=== PATIENT | female | born 1960 | race Caucasian/White ===

== ENCOUNTER 2020-03-06 12:56 | Outpatient (CLI) | payer BC, OTHER, SELFPAY ==
[2020-03-06 13:45] LABS: Basophils Percent Auto 0.4 % (0.2-1.2); Eosinophils Absolute Auto 0.2 K/mm3 (0-0.3); Eosinophils Percent Auto 2.6 % (0-4.4); Hematocrit 37.7 % (37.0-47.0); Hemoglobin 12.1 g/dL (12.0-15.0); Immature Granulocyte Absolute 0.04 K/mm3 (0.00-0.031); Immature Granulocyte Percent A 0.5 % (0-0.5); Lymphocytes Absolute Auto 0.33 K/mm3 (0.9-3.2); Mean Corpuscular HGB Conc 32.1 g/dl (32-36); Mean Corpuscular Hemoglobin 30.4 pg (26-34); Mean Corpuscular Volume 94.7 fl (80-100); Mean Platelet Volume 9.9 fl (7.4-10.4); Monocytes Absolute Auto 1.4 K/mm3 (0.1-0.6); Monocytes Percent Auto 16.9 % (2.6-8.5); Neutrophils Absolute Auto 6.2 K/mm3 (1.3-6.7); Neutrophils Percent Auto 75.6 % (45.5-73.1); Platelet Count Result 396 k/mm3 (150-375); Red Blood Count 3.98 M/mm3 (4.2-5.4); Red Cell Distribution Width 12.6 % (11.5-14.5); White Blood Count 8.2 K/mm3 (4.5-10.0)
[2020-03-06 14:01] LABS: Alanine Aminotransferase 69 U/L (4-35); Albumin Level 4.2 g/dL (3.5-5.1); Alkaline Phosphatase 233 U/L (38-126); Aspartate Amino Transferase 35 U/L (14-36); Bilirubin,Total 0.4 mg/dL (0.2-1.3); Blood Urea Nitrogen 21 mg/dL (7-17); Calcium 9.3 mg/dL (8.4-10.2); Carbon Dioxide 29 mmol/L (22-30); Chloride 105 mmol/L (98-107); Estimated Glomerular Filt Rate 57; Glucose 100 mg/dL (65-105); Potassium 4.8 mmol/L (3.4-5.0); Sodium 142 mmol/L (137-145)
[2020-03-06 14:06] LABS: Add Urine Microscopic? YES; Appearance Urine Turbid (Clear); Bacteria Urine 1+ /hpf; Bilirubin Urine Negative (Negative); Blood Urine Negative (Negative); Color Urine Yellow (Yellow); Glucose Urine UA Negative (Negative); Ketones Urine Negative (Negative); Leukocyte Esterase Ur 2+ LEU/UL (Negative); Mucus Urine Heavy /lpf; Nitrate Urine Negative (Negative); Protein Urine 2+ mg/dL (Negative); RBC Urine 21-50 /hpf (0-2); Specific Grav Ur 1.016 (1.001-1.035); Squamous Epithelial Cell Urine Many /hpf (Few); Transitional Epi Cells Urine Few /hpf (None Seen); WBC Clumps Urine Present /HPF; WBC Urine >75 /hpf
== END 2020-03-06 12:57 | disposition home or self-care (01) ==
PROVIDERS: PCP Internal Medicine Endocrinology, Diabetes & Metabolism
DX: G35 Multiple sclerosis (principal); Z79.899 Other long term (current) drug therapy
CPT/HCPCS: 36415; 80053; 81001; 85025; 87086

== ENCOUNTER 2020-06-07 12:15 | Outpatient (CLI) | payer BC, OTHER, SELFPAY ==
[2020-06-07 12:58] LABS: Calcium 9.3 mg/dL (8.4-10.2); Estimated Glomerular Filt Rate > 60
[2020-06-07 13:43] LABS: Vitamin D 25 Hydroxy 49.1 ng/mL
== END 2020-06-07 12:16 | disposition home or self-care (01) ==
PROVIDERS: PCP Internal Medicine Endocrinology, Diabetes & Metabolism; Visit Provider Nurse Practitioner
DX: M81.0 Age-related osteoporosis without current pathological fracture (principal); Z01.818 Encounter for other preprocedural examination
CPT/HCPCS: 36415; 82306; 82310; 82565

== ENCOUNTER → 2020-07-07 17:42 | Outpatient (CLI) | payer BC, OTHER, SELFPAY ==
--- NOTE | ~2020-07-07 | MM_ITS ---
EXAMINATION: MM screening [facility] BI w diana HISTORY: Screening mammogram TECHNIQUE: Craniocaudal and mediolateral oblique 3-D tomosynthesis images were obtained and synthetic 2-D images were generated. CAD analysis was submitted and interpreted. COMPARISON: 05/14/2019, 04/17/2018, 03/23/2017 bilateral digital screening mammogram examinations BREAST PARENCHYMAL COMPOSITION: The breasts are heterogeneously dense, which may obscure small masses . FINDINGS: Stable benign circumscribed approximately 5 mm opacity is noted in the posterior aspect of the upper mid right breast (MLO Tomosynthesis image 30/59), likely a benign intramammary lymph node. Several subcentimeter circumscribed masses are suggested in the upper inner and upper outer left jaqueline st; diagnostic left mammogram and left breast ultrasound examination are recommended for further eval uation. Otherwise no suspicious mass, architectural distortion, malignant calcification, skin thickening or r etraction of either breast is evident. IMPRESSION: 1. Several subcentimeter circumscribed masses are noted in the upper inner and upper outer left breas t 2. Diagnostic left mammogram and left breast ultrasound examination are recommended. BI-RADS Category 0: Incomplete: Needs additional imaging evaluation. Reviewed, dictated and finalized at location B. ARCH AND DEVELOPMENT TECHNICIAN IMPRESSION: 1. Several subcentimeter circumscribed masses are noted in the upper inner and upper outer left breast 2. Diagnostic left mammogram and left breast ultrasound examination are recomme nded. BI-RADS Category 0: Incomplete: Needs additional imaging evaluation.
== END ==
PROVIDERS: Visit Provider Nurse Practitioner
DX: Z12.31 Encounter for screening mammogram for malignant neoplasm of breast (principal); R92.8 Other abnormal and inconclusive findings on diagnostic imaging of breast
CPT/HCPCS: 77063; 77067

== ENCOUNTER → 2020-09-03 09:19 | Outpatient (CLI) | payer BC, OTHER, SELFPAY ==
--- NOTE | ~2020-09-03 | MMUS_ITS ---
EXAMINATION: MM diagnostic mammo unilat LT, US breast LT limited HISTORY: Follow-up left breast masses TECHNIQUE: Additional 3-D tomosynthesis images of the left breast were performed and synthetic 2-D im ages were generated. CAD analysis was submitted and interpreted. High resolution Limited left breast ultrasound was performed. COMPARISON: Comparison to multiple prior studies sequentially, with oldest reviewed study dated 02/11. BREAST PARENCHYMAL COMPOSITION: The breasts are heterogenously dense, which may obscure small masses. FINDINGS: MAMMOGRAPHIC FINDINGS: There are no suspicious masses, calcifications or architectural distortion to suggest malignancy. The re are benign intramammary lymph nodes in the upper aspect of the left breast on mediolateral view. ULTRASOUND: Limited left breast ultrasound: There is normal heterogeneous echotexture without focal solid or cyst ic mass. IMPRESSION: 1. No evidence for malignancy in the left breast. 2. Routine yearly screening mammogram and regular clinical breast examination are recommended. BI-RADS Category 1: Negative Reviewed, dictated and finalized at location A. NT PORTFOLIO MANAGER IMPRESSION: 1. No evidence for malignancy in the left breast. 2. Routine yearly screening mammogram and regular clinical breast examination a re recommended. BI-RADS Category 1: Negative
== END ==
PROVIDERS: Visit Provider Obstetrics & Gynecology Gynecology
DX: R92.8 Other abnormal and inconclusive findings on diagnostic imaging of breast (principal)
CPT/HCPCS: 76642; 77065

== ENCOUNTER → 2021-08-11 09:16 | Outpatient (CLI) | payer BC, OTHER, SELFPAY ==
--- NOTE | ~2021-08-11 | MMUS_ITS ---
EXAMINATION: MM diagnostic crystal BI w diana, US breast BI limited HISTORY: Pain in the bilateral upper breasts. TECHNIQUE: Craniocaudal, mediolateral, and mediolateral oblique 3-D tomosynthesis images of the abi ts were performed and synthetic 2-D images were generated. CAD analysis was submitted and interpreted . High resolution limited bilateral breast ultrasound was performed. COMPARISON: 09/03/2020, 07/07/2020, 05/14/2019, 04/17/2018 BREAST PARENCHYMAL COMPOSITION: The breasts are heterogeneously dense, which may obscure small masses . FINDINGS: MAMMOGRAPHIC FINDINGS: There is no evidence of suspicious mass, calcification, or architectural distortion in either breast to suggest malignancy. There has been no suspicious interval change. No mammographic correlate is id entified for the patient's reported breast pain ULTRASOUND: There is no evidence of focal abnormal solid or cystic mass in the vicinity of the patient's reported pain in either breast. There is a 3 mm cyst near the areola of the left breast. IMPRESSION: 1. No specific mammographic or sonographic correlate is identified for the patient's reported breast pain. Further evaluation at this time should be based on clinical assessment. Continued follow-up phy sical examination is recommended. 2. Recommend routine screening mammography in one year. BI-RADS Category 2: Benign finding(s). Reviewed, dictated and finalized at location A. ATAL CRITICAL CARE NURSE IMPRESSION: 1. No specific mammographic or sonographic correlate is identified for the shaquille ent's reported breast pain. Further evaluation at this time should be based on clinical assessment. Continued follow-up physical examination is recommended. 2. Recommend routine screening mammography in one year. BI-RADS Category 2: Benign finding(s).
== END ==
PROVIDERS: Visit Provider Nurse Practitioner
DX: N64.4 Mastodynia (principal)
CPT/HCPCS: 76642; 77062; 77066; G0279

== ENCOUNTER → 2022-02-14 13:28 | Outpatient (CLI) | payer BC, OTHER, SELFPAY ==
--- NOTE | ~2022-02-14 | DEXA_ITS ---
Bone Density Report Name: INES RODRIGEZ Age: 61 Sex: Female Ethnicity: White Date of : 1960 Indication: postmenopausal osteoporosis; parental hip fracture; Referring Provider: ONIEL, ESTEFANÍA Study: Bone densitometry was performed. Exam Date: February 14, 2022 Accession number: [id number] Bone Density: Region BMD T-score Z-score Classification AP Spine (L1-L4) 0.766 -2.6 -1.2 Osteoporosis Femoral Neck (Left) 0.591 -2.3 -1.1 Osteopenia Total Hip (Left) 0.627 -2.6 -1.7 Osteoporosis Femoral Neck (Right) 0.538 -2.8 -1.5 Osteoporosis Total Hip (Right) 0.666 -2.3 -1.3 Osteopenia Total Hip Mean 0.647 -2.5 -1.5 Osteopenia World Health Organization criteria for BMD impression classify patients as: Normal (T-score at or above -1.0), Osteopenia (T-score between -1.0 and -2.5), or Osteoporosis (T-score at or below -2.5). 10-year Fracture Risk: FRAX not reported because: Some T-score for Spine Total or Hip Total or Femoral Neck at or below -2.5 Previous Exams: Region Exam Age BMD T-score BMD Change BMD Change Date g/cm2 vs Baseline vs Previous AP Spine(L1-L4) 02/14/2022 61 0.766 -2.6 0.032* 0.007 05/14/2019 58 0.759 -2.6 0.025* -0.008 03/23/2017 56 0.767 -2.5 0.033* 0.049* 01/04/2015 54 0.718 -3.0 -0.016 0.004 12/30/2012 52 0.714 -3.0 -0.020 -0.020 08/17/2010 50 0.734 -2.8 Total Hip(Left) 02/14/2022 61 0.627 -2.6 0.035* 0.006 05/14/2019 58 0.620 -2.6 0.029* 0.007 03/23/2017 56 0.614 -2.7 0.022 0.015 01/04/2015 54 0.599 -2.8 0.007 0.017 12/30/2012 52 0.582 -3.0 -0.010 -0.010 08/17/2010 50 0.592 -2.9 Total Hip(Right) 02/14/2022 61 0.666 -2.3 0.025 -0.001 05/14/2019 58 0.667 -2.3 0.026 -0.008 03/23/2017 56 0.675 -2.2 0.034* 0.046* 01/04/2015 54 0.629 -2.6 -0.012 -0.033* 12/30/2012 52 0.662 -2.3 0.021 0.021 08/17/2010 50 0.641 -2.5 *Denotes significance at 95% confidence level, LSC for AP Spine = 0.022 g/cm2, LSC for Total Hip = 0.027 g/cm2 Clinical Information Provided by Patient: Parent has had a hip fracture Patient maximum height was 67.2 Menopause Age: 42 Does not regularly consume dairy products Onset of menses at age 18 Number of children 0 -
== END ==
PROVIDERS: PCP Nurse Practitioner; Visit Provider Nurse Practitioner
DX: M81.0 Age-related osteoporosis without current pathological fracture (principal); M85.89 Other specified disorders of bone density and structure, multiple sites
CPT/HCPCS: 77080

== ENCOUNTER 2022-03-11 11:23 | Outpatient (CLI) | payer BC, OTHER, SELFPAY ==
[2022-03-11 13:11] LABS: Vitamin D 25 Hydroxy 28.7 ng/mL
== END 2022-03-11 11:24 | disposition home or self-care (01) ==
PROVIDERS: PCP Nurse Practitioner; Visit Provider Obstetrics & Gynecology Gynecology
DX: E55.9 Vitamin D deficiency, unspecified (principal)
CPT/HCPCS: 36415; 82306

== ENCOUNTER → 2022-10-09 10:17 | Outpatient (CLI) | payer BC, OTHER, SELFPAY ==
--- NOTE | ~2022-10-09 | MM_ITS ---
EXAMINATION: MM screening crystal BI w diana HISTORY: Screening mammogram TECHNIQUE: Craniocaudal and mediolateral oblique 3-D tomosynthesis images were obtained and synthetic 2-D images were generated. Bilateral rotated lateral CC views. CAD analysis was submitted and interp reted. COMPARISON: 08/11/2021 bilateral diagnostic mammogram and Limited bilateral breast ultrasound 09/03/2020 diagnostic left mammogram and limited left breast ultrasound 07/07/2020, 05/14/2019 bilateral screening mammogram examinations BREAST PARENCHYMAL COMPOSITION: The breasts are heterogeneously dense, which may obscure small masses . FINDINGS: There is no evidence of suspicious mass, calcification, or architectural distortion to sugg est malignancy in either breast. There has been no suspicious interval change. IMPRESSION: 1. No mammographic evidence of malignancy. 2. Recommend routine screening mammography in one year. BI-RADS Category 1: Negative Reviewed, dictated and finalized at location A. INSTRUMENT REPAIRER
== END ==
PROVIDERS: Visit Provider Nurse Practitioner
DX: Z12.31 Encounter for screening mammogram for malignant neoplasm of breast (principal)
CPT/HCPCS: 77063; 77067

== ENCOUNTER 2023-10-19 12:07 | Outpatient (CLI) | payer BC, OTHER, SELFPAY ==
[2023-10-19 13:12] LABS: Calcium 9.4 mg/dL (8.4-10.2)
== END 2023-10-19 12:08 | disposition home or self-care (01) ==
LOC: ANHLAB 12:10
PROVIDERS: Visit Provider Nurse Practitioner
DX: M81.0 Age-related osteoporosis without current pathological fracture (principal); E55.9 Vitamin D deficiency, unspecified
CPT/HCPCS: 36415; 82306; 82310

== ENCOUNTER 2024-02-11 11:57 | Outpatient (CLI) | payer BC, OTHER, SELFPAY ==
[2024-02-14 12:23] LABS: Vitamin D 1,25 (OH)2 Total 55 pg/mL (18-72); Vitamin D2 1,25 (OH)2 <8 pg/mL; Vitamin D3 1,25 (OH)2 55 pg/mL
== END 2024-02-11 11:58 | disposition home or self-care (01) ==
LOC: ANHLAB 12:01
PROVIDERS: Visit Provider Obstetrics & Gynecology Gynecology
DX: E55.9 Vitamin D deficiency, unspecified (principal)
CPT/HCPCS: 36415; 82652

== ENCOUNTER 2024-06-30 07:10 | Outpatient (CLI) | payer BC, OTHER, SELFPAY ==
--- NOTE | ~2024-06-30 | MM_ITS ---
EXAMINATION: MM screening crystal BI w diana HISTORY: Screening mammogram TECHNIQUE: Craniocaudal and mediolateral oblique 3-D tomosynthesis images were obtained and synthetic 2-D images were generated. CAD analysis was submitted and interpreted. COMPARISON: 10/09/2022, 08/11/2021, 09/03/2020, 07/07/2020 BREAST PARENCHYMAL COMPOSITION:Dense: The breasts are heterogeneously dense, which may obscure small masses. FINDINGS: There is an asymmetry in the slightly outer left subareolar region, possibly summation spike fact, but indeterminate. Stable parenchymal appearance of the right breast. No suspicious mammographi c calcifications. IMPRESSION: Left outer subareolar asymmetry, possibly summation artifact, but indeterminate. Spot compression vi ews, and possibly ultrasound, recommended for further evaluation. BI-RADS Category 1: Negative Reviewed, dictated and finalized at location . STOCK MACHINE FEEDER IMPRESSION: Left outer subareolar asymmetry, possibly summation artifact, but indeterminat e. Spot compression views, and possibly ultrasound, recommended for further johnna luation. BI-RADS Category 1: Negative
== END 2024-06-30 07:11 | disposition home or self-care (01) ==
PROVIDERS: Visit Provider Nurse Practitioner
DX: Z12.31 Encounter for screening mammogram for malignant neoplasm of breast (principal); M81.0 Age-related osteoporosis without current pathological fracture
CPT/HCPCS: 77063; 77067

== ENCOUNTER 2024-06-30 08:25 | Outpatient (CLI) | payer BC, OTHER, SELFPAY ==
[2024-06-30 09:14] LABS: Calcium 9.5 mg/dL (8.4-10.2)
[2024-06-30 13:47] LABS: Vitamin D 25 Hydroxy 53.5 ng/mL
== END 2024-06-30 08:26 | disposition home or self-care (01) ==
PROVIDERS: Visit Provider Obstetrics & Gynecology Gynecology
DX: M81.0 Age-related osteoporosis without current pathological fracture (principal); E55.9 Vitamin D deficiency, unspecified
CPT/HCPCS: 36415; 82306; 82310

== ENCOUNTER 2024-07-23 09:32 | Outpatient (CLI) | payer BC, OTHER, SELFPAY ==
--- NOTE | ~2024-07-23 | DEXA_ITS ---
Bone Density Report Name: INES RODRIGEZ Age: 64 Sex: Female Ethnicity: White Date of : 1960 Indication: postmenopausal; screening for osteoporosis; parental hip fracture; Referring Provider: ANGELA ROBLES Study: Bone densitometry was performed. Exam Date: July 23, 2024 Accession number: [id number] Bone Density: Region BMD T-score Z-score Classification AP Spine(L1-L4) 0.786 -2.4 -0.8 Osteopenia Femoral Neck (Left) 0.584 -2.4 -1.0 Osteopenia Total Hip (Left) 0.573 -3.0 -2.0 Osteoporosis Femoral Neck (Right) 0.549 -2.7 -1.3 Osteoporosis Total Hip (Right) 0.630 -2.6 -1.5 Osteoporosis Total Hip Mean 0.602 -2.8 -1.8 Osteoporosis World Health Organization criteria for BMD impression classify patients as: Normal (T-score at or above -1.0), Osteopenia (T-score between -1.0 and -2.5), or Osteoporosis (T-score at or below -2.5). 10-year Fracture Risk: FRAX not reported because: Some T-score for Spine Total or Hip Total or Femoral Neck at or below -2.5 Clinical Information Provided by Patient: Parent has had a hip fracture Has used the following medications: Vitamin D Patient maximum height was 67.0 No regular weight bearing exercise Does not regularly consume dairy products Onset of menses at age 17 Number of children 0 Impression: The patient has osteoporosis, based on the Left Total Hip T-score. The patient has risk factors, including: parental hip fracture. Discussion: HIGH RISK OF FRACTURE. BONE DENSITY IS UNDESIRABLY LOW AT ONE OR MORE SKELETAL SITES, CONSISTENT WITH OSTEOPOROSIS. ALSO, BONE DENSITY IS LOWER THAN EXPECTED FOR AGE AND SEX AT ONE OR MORE SKELETAL SITES; RECOMMEND A DILIGENT SEARCH FOR SECONDARY CAUSES OF BONE LOSS. This patient's lowest T-score meets the World Health Organization's (WHO) criteria for osteoporosis at one or more sites (T-score -2.5 or below). In untreated patients, the risk of osteoporotic fracture increases approximately two-fold for each 1.0 SD decrease in T-score. Low bone density is not the only risk factor for fracture; also consider factors such as patient's age, frailty or poor health, risk of falling, risk of injury, previous osteoporotic fracture, family history of osteoporosis, cigarette smoking, low body weight, etc. Not everyone with low bone mineral density has osteoporosis; osteomalacia and other metabolic bone disorders should also be considered. Patients who have osteoporosis should be evaluated for specific diseases and conditions (secondary causes) that may cause or contribute to bone loss. The [place] Association of Clinical Endocrinologists (AACE) and National Osteoporosis Foundation (NOF) recommend pharmacologic intervention for all postmenopausal women whose T-score is in this range. Also, this patient's bone mineral density is below the range considered normal for healthy age-, sex-, and race-matched controls at least one site (Z-score -2.0 or below). This warrants careful evaluation for diseases and conditions that may contribute to accelerated bone loss. The patient should follow a healthful lifestyle (good nutrition with adequate calcium and vitamin D, and appropriate weight-bearing exercise). Follow-Up: Consider a repeat BMD and Vertebral Fracture Assessment (VFA) exam in 2 years or sooner if medically necessary, to reassess this patient's status. Reported by: NASIR on 07/23/2024 10:16:00 AM. Reviewed, dictated and finalized at location ACyril MCGREGOR
== END 2024-07-23 09:33 | disposition home or self-care (01) ==
LOC: ANHIMG 09:35
PROVIDERS: Visit Provider Obstetrics & Gynecology Gynecology
DX: M81.0 Age-related osteoporosis without current pathological fracture (principal); M85.89 Other specified disorders of bone density and structure, multiple sites; Z78.0 Asymptomatic menopausal state
CPT/HCPCS: 77080

== ENCOUNTER 2024-10-27 16:51 | Outpatient (CLI) | payer BC, OTHER, SELFPAY ==
[2024-10-27 17:17] LABS: Basophils Percent Auto 0.4 % (0.2-1.2); Eosinophils Absolute Auto 0.3 K/mm3 (0-0.3); Eosinophils Percent Auto 4.1 % (0-4.4); Hemoglobin 12.6 g/dL (12.0-15.0); Immature Granulocyte Absolute 0.03 K/mm3 (0.00-0.031); Immature Granulocyte Percent A 0.4 % (0-0.5); Lymphocytes Absolute Auto 0.38 K/mm3 (0.9-3.2); Lymphocytes Percent Auto 4.7 % (18.3-44.2); Mean Corpuscular HGB Conc 31.5 g/dl (32-36); Mean Corpuscular Hemoglobin 29.6 pg (26-34); Mean Corpuscular Volume 93.9 fl (80-100); Mean Platelet Volume 9.7 fl (7.4-10.4); Monocytes Absolute Auto 1.1 K/mm3 (0.1-0.6); Monocytes Percent Auto 12.9 % (2.6-8.5); Neutrophils Absolute Auto 6.3 K/mm3 (1.3-6.7); Neutrophils Percent Auto 77.5 % (45.5-73.1); Platelet Count Result 350 k/mm3 (150-375); Red Blood Count 4.26 M/mm3 (4.2-5.4); Red Cell Distribution Width 13.7 % (11.5-14.5); White Blood Count 8.1 K/mm3 (4.5-10.0)
[2024-10-27 17:30] LABS: Alanine Aminotransferase 20 U/L (6-35); Albumin Level 4.6 g/dL (3.5-5.1); Alkaline Phosphatase 79 U/L (38-126); Anion Gap 10 mmol/L (4-12); Aspartate Amino Transferase 22 U/L (14-36); Bilirubin,Total 0.4 mg/dL (0.2-1.3); Blood Urea Nitrogen 35 mg/dL (7-17); Calcium 9.6 mg/dL (8.4-10.2); Carbon Dioxide 29 mmol/L (22-30); Chloride 104 mmol/L (98-107); Estimated Glomerular Filt Rate 48; Glucose 97 mg/dL (65-110); Potassium 4.1 mmol/L (3.4-5.0); Sodium 143 mmol/L (137-145)
--- OUTSIDE RECORDS SUMMARY | 2024-10-27 19:05 | XMS_ITS | Encounter Summary ---
Author Organization [facility] Address [address] [place] [address] Care Team Providers Care Sales Representative [employer] Name Role Phone Michael Bryant MD Primary Care Provider [phone] Encounter Details Date Type Department Care Team (Late st Contact Info) Description 01/10/2007 Outpatient Historical [facility] [address] [address] Davina Cueto MD [address] [place] [address] Social History Tobacco Use Types Packs/Day Years Used Date Smoking Tobacco: Never Assessed Comments Unknown Sex and Gender Information Value Date Recorded Sex Assigned at Not on file Legal Sex Female 3:03 AM MOLD SHAKER Gender Identity Not on file Sexual Orientation Not on file documented as of this encounter Plan of Treatment Not on file documented as of this encounter Visit Diagnoses Not on filedocumented in this encounter Care Teams Sales Representative [employer] Relationship Specialty Start Date End Date Michael Bryant MD [address] [facility] [address] [place] [address] PCP - General 08/06/15 documented as of this encounter
--- OUTSIDE RECORDS SUMMARY | 2024-10-27 19:05 | XMS_ITS | Encounter Summary ---
Author Organization [facility] Address [address] [place] [address] Care Team Providers Care Ticket Dispenser Changer Name Role Phone Michael Bryant MD Primary Care Provider [phone] Encounter Details Date Type Department Care Team (Late st Contact Info) Description 11/17/2003 Outpatient Historical Division of Neurology [address] [address] Davina Cueto MD [address] [place] [address] Social History Tobacco Use Types Packs/Day Years Used Date Smoking Tobacco: Never Assessed Comments Unknown Sex and Gender Information Value Date Recorded Sex Assigned at Not on file Legal Sex Female 3:03 AM DIRECTOR PRODUCT Gender Identity Not on file Sexual Orientation Not on file documented as of this encounter Plan of Treatment Not on file documented as of this encounter Visit Diagnoses Not on filedocumented in this encounter Care Teams Ticket Dispenser Changer Relationship Specialty Start Date End Date Michael Bryant MD [address] [facility] [address] [place] [address] PCP - General 08/06/15 documented as of this encounter
--- OUTSIDE RECORDS SUMMARY | 2024-10-27 19:05 | XMS_ITS | Encounter Summary ---
Author Organization [facility] Address [address] [place] [address] Care Team Providers Care Geospatial Technologist Name Role Phone Michael Bryant MD Primary Care Provider [phone] Encounter Details Date Type Department Care Team (Late st Contact Info) Description 04/29/2004 Outpatient Historical Division of Neurology [address] [address] Davina Cueto MD [address] [facility] [address] [place] [address] Social History Tobacco Use Types Packs/Day Years Used Date Smoking Tobacco: Never Assessed Comments Unknown Sex and Gender Information Value Date Recorded Sex Assigned at Not on file Legal Sex Female 3:03 AM DISTILLERY SUPERVISOR Gender Identity Not on file Sexual Orientation Not on file documented as of this encounter Plan of Treatment Not on file documented as of this encounter Visit Diagnoses Not on filedocumented in this encounter Care Teams Geospatial Technologist Relationship Specialty Start Date End Date Michael Bryant MD [address] [facility] [address] [place] [address] PCP - General 08/06/15 documented as of this encounter
--- OUTSIDE RECORDS SUMMARY | 2024-10-27 19:05 | XMS_ITS | Encounter Summary ---
Author Organization [facility] Address [address] [place] [address] Care Team Providers Care Cracking Machine Operator Name Role Phone Michael Bryant MD Primary Care Provider [phone] Encounter Details Date Type Department Care Team (Late st Contact Info) Description 01/23/2007 Outpatient Historical [facility] [address] [address] Davina Cueto MD [address] [place] [address] Social History Tobacco Use Types Packs/Day Years Used Date Smoking Tobacco: Never Assessed Comments Unknown Sex and Gender Information Value Date Recorded Sex Assigned at Not on file Legal Sex Female 3:03 AM GAS PUMPER Gender Identity Not on file Sexual Orientation Not on file documented as of this encounter Plan of Treatment Not on file documented as of this encounter Visit Diagnoses Not on filedocumented in this encounter Care Teams Cracking Machine Operator Relationship Specialty Start Date End Date Michael Bryant MD [address] [facility] [address] [place] [address] PCP - General 08/06/15 documented as of this encounter
--- OUTSIDE RECORDS SUMMARY | 2024-10-27 19:05 | XMS_ITS | Encounter Summary ---
Author Organization [email or web address] Address [address] [place] [address] Care Team Providers Care Balance Sheet Analyst Name Role Phone Michael Bryant MD Primary Care Provider [phone] Encounter Details Date Type Department Care Team (Late st Contact Info) Description 05/03/2006 Outpatient [facility] Division of Neurology [address] [address] Davina Cueto MD [address] [facility] [address] [place] [address] Social History Tobacco Use Types Packs/Day Years Used Date Smoking Tobacco: Never Assessed Comments Unknown Sex and Gender Information Value Date Recorded Sex Assigned at Not on file Legal Sex Female 3:03 AM OUTDOOR FITNESS TRAINER Gender Identity Not on file Sexual Orientation Not on file documented as of this encounter Plan of Treatment Not on file documented as of this encounter Visit Diagnoses Not on filedocumented in this encounter Care Teams Balance Sheet Analyst Relationship Specialty Start Date End Date Michael Bryant MD [address] [facility] [address] [place] [address] PCP - General 08/06/15 documented as of this encounter
--- OUTSIDE RECORDS SUMMARY | 2024-10-27 19:05 | XMS_ITS | Referral Summary ---
Author Organization [facility] al Address [address] [place] [address] Care Team Providers Care Sleeper Cutter Name Role Phone Lisa Chapin MD Primary Care Provider Allergies No known active allergies Medications naloxone (NARCAN) 4 mg/actuation spray,non-aeroso l Administer 1 spray into affected nostril(s) as needed for opioid reversal or respiratory depression Call 911. Administer a single spray in one nostril. Repeat every 3 minutes as needed if no or minimal response. 1 each 3 2 Active cholecalciferol (VITAMIN D-3) 25 mcg (1,000 unit) tablet Take 1 tablet (1,000 Units total) by mouth every morning Active traMADoL (ULTRAM) 50 mg tablet Take 1 tablet (50 mg total) by mouth every 6 (six) hours as needed for pain 20 tablet 4 Active gabapentin (NEURONTIN) 300 mg capsuleIndicatio ns:MS (multiple sclerosis) (HCC) Take 1 capsule (300 mg total) by mouth 3 (three) times a day 180 capsule 3 4 Active clorazepate (TRANXENE) 7.5 mg tablet TAKE 1 TABLET(7.5 MG) BY MOUTH TWICE DAILY 180 tablet 1 4 Active escitalopram (LEXAPRO) 20 mg tabletIndication s:MS (multiple sclerosis) (HCC),Reactive depression TAKE 1 TABLET(20 MG) BY MOUTH DAILY 90 tablet 1 4 Active Nurtec ODT tablet,disintegr atingIndications :Migraine without aura and without status migrainosus, not intractable Take 1 tablet (75 mg total) by mouth daily as needed (migraine) 8 tablet 5 4 Active fingolimod (GILENYA) 0.5 mg capsuleIndicatio ns:Multiple sclerosis (HCC) TAKE 1 CAPSULE BY MOUTH 1 TIME A DAY 30 capsule 5 4 Active oxyBUTYnin XL (DITROPAN-XL) 5 mg 24 hr tablet TAKE 1 TABLET(5 MG) BY MOUTH DAILY 30 tablet 3 4 Active Active Problems Problem Noted Date Diagnosed Date 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 S/p URS (11/25/23) [small stone debris, possible stone w/in an excluded calyx]. DARNELL (12/22/22) - bilateral nonobstructing renal calculi. Plan - surveillance. 03/20/24: RP. DARNELL (03/20/24) - 3 mm nonobstructing stone in the midpole of the right kidney and 6 mm non-obstructing stone in the upper pole of the left kidney; no hydronephrosis. Asymptomatic. 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 Copaxone 0903-2617 skin lesions 3. Avonex 2001-04/2015 4. Gilenya 05/05/15- present DMT JCV Antibody Negative 04/28/15 Index 0.16 1 Betaseron [id number] 2. Copaxone 5374-9936 skin lesions 3. Avonex 2001-04/2015 4. Gilenya 05/05/15- present Renal stones 02/15/2012 Immunizations Immunization Administration Dates Next Due Flucelvax Influenza Quad 05/02/2024 Influenza, Quadrivalent, Spl it, Preservative Free, Intramuscular 05/15/2023,05/02/2020,05/29/2018,05/28 Influenza, Trivalent, IM (MDV) 05/31/2016,2012 Influenza, Trivalent, Preser vative Free, Intramuscular 06/29/2017,05/30/2016,06/14/2015 Influenza, Unspecified 04/29/2020 Moderna Sars-cov-2 Monovalen t Booster Vaccination (12+ YRS) 07/04/2024 Pfizer SARS-CoV-2 Monovalent Vaccination (12+ Yrs) PURPLE 05/23/2021,09/13/2020,08/23/2020 Social History Tobacco Use Types Packs/Day Years Used Date Smoking Tobacco: Some Days Cigarettes Smokeless Tobacco: Never Tobacco Cessation:Ready to Q uit: Not Asked; Counseling Given: Not Answered Comments:2 cigarettes/ month Alcohol Use Standard Drinks/Week Comments Yes 0 (1 standard drink = 0.6 oz pur e alcohol) occasional Humiliation, Afraid, Rape, and Kick questionnair e Answer Date Recorded Within the last year, have y ou been afraid of your partner or ex-partner? No 09/28/2020 Within the last year, have y ou been humiliated or emotionally abused in other ways by your partner or ex-partner? No Within the last year, have y ou been kicked, hit, slapped, or otherwise physically hurt by your partner or ex-partner? No 09/28/2020 Within the last year, have y ou been raped or forced to have any kind of sexual activity by your partner or ex-partner? No 09/28/2020 Social Connection and Isolat ion Panel [NHANES] Answer Date Recorded In a typical week, how many times do you talk on the phone with family, friends, or neighbors? Three times a week 09/28/2020 How often do you get togethe r with friends or relatives? Twice a week 09/28/2020 How often do you attend chur or gnosticism services? More than 4 times per year 09/28/2020 Do you belong to any clubs o r organizations such as methodist groups, unions, fraternal or athletic groups, or school groups? No 09/28/2020 How often do you attend meet ings of the clubs or organizations you belong to? Never 09/28/2020 Are you , , di vorced, , never , or living with a partner? 09/28/2020 AUDIT-C Answer Date Recorded Q1: How often do you have a drink containing alc ohol? 2-4 times a month 07/11/2024 Q2: How many drinks containi ng alcohol do you have on a typical day when you are drinking? 1 or 2 07/11/2024 Q3: How often do you have si x or more drinks on one occasion? Never 07/11/2024 Overall Financial Resource Strain (CARDIA) Answe r Date Recorded How hard is it for you to pa y for the very basics like food, housing, medical care, and heating? Not hard at all 09/28/2020 Hunger Vital Sign Answer Date Recorded Within the past 12 months, y ou worried that your food would run out before you got the money to buy more. Never true 09/28/19 21 Within the past 12 months, t he food you bought just didn't last and you didn't have money to get more. Never true 09/28/2020 PRAPARE - Transportation Answer Date Re corded In the past 12 months, has l ack of transportation kept you from medical appointments or from getting medications? No 04/2021 In the past 12 months, has l ack of transportation kept you from meetings, work, or from getting things needed for daily living? No 09/28/2020 Personal Safety Answer Date Recorded Have you ever been in or are you currently in a harmful physical or emotional relationship or is someone making you feel afraid or unsafe? Denies 04/09/2024 Comments No Sex and Gender Information Value Date Recorded Sex Assigned at Not on file Legal Sex Female 8:26 PM WELL DIGGER Gender Identity Female 08/03/2023 12:15 PM WELL DIGGER Sexual Orientation Straight 09/21/2021 12 :25 PM WELL DIGGER Last Filed Vital Signs Vital Sign Reading Time Taken Comments Blood Pressure 124/77 07/11/2024 10:16 AM WELL DIGGER Pulse 65 07/11/2024 10:16 AM WELL DIGGER Temperature 36.4 C (97.6 F) 04/09/2024 5:10 PM CDT Respiratory Rate 17 04/09/2024 8:00 PM CDT Oxygen Saturation 97% 07/11/2024 10:16 AM WELL DIGGER Inhaled Oxygen Concentration - - Weight 69.9 kg (154 lb) 07/11/2024 10:16 AM WELL DIGGER Height 170.2 cm (5' 7 ) 07/11/2024 10:16 AM WELL DIGGER Body Mass Index 24.12 07/11/2024 10:16 AM WELL DIGGER Plan of Treatment Not on file Medical Devices Implanted Type Area Mobility Engineer Device Identifier Shelf Expiration Date Model / Serial / Lot [employer] [id number] Inlay [place] 6fr 24cm Pusher Fluoro Marker Atraumatic Insertion Latex Free - [id number] Implanted:Qty: 1 on 10/19/2020 by Shaun Vega MD at [facility] Stent Left: Ureter [employer] [id number] 01/09/2024 [id number] / / [id number] Universa 6fr 26cm Radiopaque Positioner Monofilament Tether 2 [id number] - [id number] Implanted:Qty: 1 on 11/24/2022 by Shaun Serna MD at [facility] Left: Ureter [employer] [id number] 10/09/2025 [id number] / / [id number] Explanted Type Area Mobility Engineer Device Identifier Shelf Expiration Date Model / Serial / Lot [employer] [id number] Inlay [place] 6fr 24cm Pusher Fluoro Marker Atraumatic Insertion Latex Free - Sna - [id number] Implanted:Qty: 1 on 07/03/2018 by Valdez Reyes MD at [facility] Explanted:Qty: 1 on 07/10/2018 Stent Right: Ureter [employer] [id number] 07/06/2022 [id number] / NA / [id number] Description:Stents left on a string, per op note [employer] [id number] Inlay [place] 6fr 24cm Pusher Fluoro Marker Atraumatic Insertion Latex Free - Sna - [id number] Implanted:Qty: 1 on 07/03/2018 by Valdez Reyes MD at [facility] Explanted:Qty: 1 on 07/10/2018 Stent Right: Ureter [employer] [id number] 07/06/2022 [id number] / NA / [id number] Description:Stents left on a string, per op note [employer] [id number] Inlay [place] 6fr 26cm Pusher Fluoro Marker Atraumatic Insertion Latex Free - [id number] Implanted:Qty: 1 on 06/27/2018 by Patric Simms MD at [facility] Explanted:Qty: 1 on 07/03/2018 by Valdez Reyes MD at [facility] Right: Ureter [employer] [id number] 11/30/2021 [id number] / / [id number] [employer] [id number] Universa 6fr 24cm Radiopaque Graduate Firm Monofilament Tether - [id number] Implanted:Qty: 1 on 09/28/2020 by Shaun Vega MD at [facility] Explanted:Qty: 1 on 10/19/2020 at [facility] Left: Ureter [employer] 02/08/2023 [id number] / / Insurance [facility] CHOICE PLUS [place] [id number] [facility] FEDERAL [facility] CHOICE PLUS [facility] [address]ER[address] [place] [address] FEDERAL Advance Directives For more information, please contact: [phone] * Full Code (Latest Code Status on File) Date Activated Date Inactivated Comments 09/28/2020 3:45 AM 09/30/2020 9:21 PM * Full Code Date Activated Date Inactivated Comments 06/26/2018 10:18 PM 06/28/2018 2:21 PM Care Teams Sleeper Cutter Relationship Specialty Start Date End Date Lisa Chapin MD [address] [facility] [address] [place] [address] PCP - General Internal Medicine 07/11/24
--- OUTSIDE RECORDS SUMMARY | 2024-10-27 19:05 | XMS_ITS | Encounter Summary ---
Author Organization [facility] Address [address] [place] [address] Care Team Providers Care Master Ocean Yacht Name Role Phone Michael Bryant MD Primary Care Provider Encounter Details Date Type Department Care Team (Late st Contact Info) Description 05/08/2005 Outpatient Historical Division of Neurology [address] [address] Davina Cueto MD [address] [facility] [address] [place] [address] Social History Tobacco Use Types Packs/Day Years Used Date Smoking Tobacco: Never Assessed Comments Unknown Sex and Gender Information Value Date Recorded Sex Assigned at Not on file Legal Sex Female 3:03 AM BENCH LOOM WEAVER Gender Identity Not on file Sexual Orientation Not on file documented as of this encounter Plan of Treatment Not on file documented as of this encounter Visit Diagnoses Not on filedocumented in this encounter Care Teams Master Ocean Yacht Relationship Specialty Start Date End Date Michael Bryant MD [address] [facility] [address] [place] [address] PCP - General 08/06/15 documented as of this encounter
--- OUTSIDE RECORDS SUMMARY | 2024-10-27 19:05 | XMS_ITS | Encounter Summary ---
Author Organization [facility] Address [address] [place] [address] Care Team Providers Care Auto Slip Cover Installer Name Role Phone Michael Bryant MD Primary Care Provider [phone] Encounter Details Date Type Department Care Team (Late st Contact Info) Description 12/11/[address] [facility] [address] [address] Davina Cueto MD [address] [facility] [address] [place] [address] Social History Tobacco Use Types Packs/Day Years Used Date Smoking Tobacco: Never Assessed Comments Unknown Sex and Gender Information Value Date Recorded Sex Assigned at Not on file Legal Sex Female 3:03 AM AWNING INSTALLER Gender Identity Not on file Sexual Orientation Not on file documented as of this encounter Plan of Treatment Not on file documented as of this encounter Visit Diagnoses Not on filedocumented in this encounter Care Teams Auto Slip Cover Installer Relationship Specialty Start Date End Date Michael Bryant MD [address] [facility] [address] [place] [address] PCP - General 08/06/15 documented as of this encounter
--- OUTSIDE RECORDS SUMMARY | 2024-10-27 19:05 | XMS_ITS | Encounter Summary ---
Author Organization [facility] Address [address] [place] [address] Care Team Providers Care Assistant Golf Course Superintendent Name Role Phone Michael Bryant MD Primary Care Provider [phone] Encounter Details Date Type Department Care Team (Late st Contact Info) Description 11/08/2006 Outpatient [facility] Division of Neurology [address] [address] Davina Cueto MD [address] [facility] [address] [place] [address] Social History Tobacco Use Types Packs/Day Years Used Date Smoking Tobacco: Never Assessed Comments Unknown Sex and Gender Information Value Date Recorded Sex Assigned at Not on file Legal Sex Female 3:03 AM TAPE LIBRARIAN Gender Identity Not on file Sexual Orientation Not on file documented as of this encounter Plan of Treatment Not on file documented as of this encounter Visit Diagnoses Not on filedocumented in this encounter Care Teams Assistant Golf Course Superintendent Relationship Specialty Start Date End Date Michael Bryant MD [address] [facility] [address] [place] [address] PCP - General 08/06/15 documented as of this encounter
--- OUTSIDE RECORDS SUMMARY | 2024-10-27 19:05 | XMS_ITS | Encounter Summary ---
Author Organization [facility] Address [address] [place] [address] Care Team Providers Care Animal Eviscerator Name Role Phone Michael Bryant MD Primary Care Provider [phone] Encounter Details Date Type Department Care Team (Late st Contact Info) Description 10/31/2004 Outpatient [facility] Division of Neurology [address] [address] Davina Cueto MD [address] [facility] [address] [place] [address] Social History Tobacco Use Types Packs/Day Years Used Date Smoking Tobacco: Never Assessed Comments Unknown Sex and Gender Information Value Date Recorded Sex Assigned at Not on file Legal Sex Female 3:03 AM ROUGH PATCHER Gender Identity Not on file Sexual Orientation Not on file documented as of this encounter Plan of Treatment Not on file documented as of this encounter Visit Diagnoses Not on filedocumented in this encounter Care Teams Animal Eviscerator Relationship Specialty Start Date End Date Michael Bryant MD [address] [facility] [address] [place] [address] PCP - General 08/06/15 documented as of this encounter
--- OUTSIDE RECORDS SUMMARY | 2024-10-27 19:05 | XMS_ITS | Encounter Summary ---
Author Organization [facility] Address [address] [place] [address] Phone Care Team Providers Care Molded Parts Inspector Name Role Phone Michael Bryant MD Primary Care Provider [phone] Reason for Visit * Reason Comments Medication Refill Encounter Details Date Type Department Care Team (Late st Contact Info) Description 06/14/2016 Refill [facility] [address] [address] Melanie Diana, [facility] [address] Brink [facility] [place] [address] Social History Tobacco Use Types Packs/Day Years Used Date Smoking Tobacco: Former Smokeless Tobacco: Never Alcohol Use Standard Drinks/Week Comments Yes 0 (1 standard drink = 0.6 oz pur e alcohol) Social Comments No Sex and Gender Information Value Date Recorded Sex Assigned at Not on file Legal Sex Female 3:03 AM REPAIR SERVICE DISPATCHER Gender Identity Not on file Sexual Orientation Not on file Occupation Industry Job Start Date Job End Date Not on file Not on file Not on file Not on file documented as of this encounter Plan of Treatment Not on file documented as of this encounter Visit Diagnoses Not on filedocumented in this encounter Care Teams Molded Parts Inspector Relationship Specialty Start Date End Date Michael Bryant MD [address] [facility] [address] [place] [address] PCP - General 08/06/15 documented as of this encounter
--- OUTSIDE RECORDS SUMMARY | 2024-10-27 19:05 | XMS_ITS | Continuity of Care Document ---
Author Organization [facility] Address [address] [facility] [address] [place] [address] Phone Care Team Providers Care Lawn Care Worker Name Role Phone Jaya Huggins MD Unavailable Unavailable Allergies, Adverse Reactions, Alerts Substance Reaction Status Criticality No Known allergies Medications Medication Instructions Dosage Effective Dates (start - stop) Status Comments AVONEX (unknown strength) Not Available - Active CLORAZEPATE DIPOTASSIUM (unknown strength) Not Available - Active EXCEDRIN EXTRA STRENGTH (unknown strength) Not Available - Active ESCITALOPRAM OXALATE (unknown strength) Not Available - Active Procedures Procedure Date OFFICE/OUTPATIENT VISIT, [facility] VISUAL FIELD EXAMINATION(S) REFRACTION Advance Directives Directive Yes / No Effective Date File Name No Information Encounters Encounter Description Practice Location Reason(s) For Visit Diagnoses Date Provider Providers Copied on Encounter OFFICE/OUTPA TIENT VISIT, [facility], [address], [place], [place], [id number], tel:[phone] OPH CONSULT AJIT MAHER blurry vision (chief complaint) Multiple Sclerosis (chief complaint) Multiple sclerosisOptic neuritis, unspecifiedMyo vishal [address] [place] [place] [facility], [address], [place], [address], [place]. tel:[phone] Referring Provider: Davina Cueto MD, [address], [place], [address]. tel:[phone] Family History Family Member Type Diagnosis Age At Onset Father Problem (finding) Diabetes mellitus Mother Problem (finding) Diabetes mellitus Payers Payer name Insurance type Covered democrat ID Authoriza tion(s) [place] [id number] Social History Type Description Quantity Date Captured Comments Alcohol Use Details Unknown Caffeine Use Details Unknown Tobacco Use Status No Information Smoking Status Former smoker Sex Female Chief Complaint And Reason For Visit From encounter dated '06/02/2013 14:30'. blurry vision (chief complaint) Multiple Sclerosis (chief complaint) Plan Of Treatment Date Type Action Status No Information History Of Present Illness Encounter Date Complaint History Of Prese nt Illness No Information Instructions Date Instruction Additional Infor mation - Return in 6 months with Jaya Huggins MD for Complete Exam. Related to Multiple sclerosis Multiple sclerosis O U - Per Dr. Andra Cueto. VF today Related to Multiple sclerosis Optic neuritis, unsp ecified OS - Will continue to observe condition and or symptoms. Discussed diagnosis in detail with patient. Advised patient of condition. Related to Optic neuritis, unspecified Myopia OU - Discusse d CL bi focals as an option. new glasses rx given to pt today. Related to Myopia Assessments Type Assessment Date No Information
--- OUTSIDE RECORDS SUMMARY | 2024-10-27 19:05 | XMS_ITS | Clinical Summary ---
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 Copaxone 9738-9697 skin lesions 3. Avonex 2001-04/2015 4. Gilenya 05/05/15- present DMT JCV Antibody Negative 04/28/15 Index 0.16 1 Betaseron [id number] 2. Copaxone 0332-2204 skin lesions 3. Avonex 2001-04/2015 4. Gilenya 05/05/15- present Renal stones 02/15/2012 Immunizations Immunization Administration Dates Next Due Flucelvax Influenza Quad 05/02/2024 Influenza, Quadrivalent, Spl it, Preservative Free, Intramuscular 05/15/2023,05/02/2020,05/29/2018,05/28 Influenza, Trivalent, IM (MDV) 05/31/2016,2012 Influenza, Trivalent, Preser vative Free, Intramuscular 06/29/2017,05/30/2016,06/14/2015 Influenza, Unspecified 04/29/2020 Moderna Sars-cov-2 Monovalen t Booster Vaccination (12+ YRS) 07/04/2024 Pfizer SARS-CoV-2 Monovalent Vaccination (12+ Yrs) PURPLE 05/23/2021,09/13/2020,08/23/2020 Surgical History Surgery Date Site/Laterality Comments MD LIG/TRNSXJ FLP TUBE ABDL/VAG APPR UNI/BI Tubal Ligation - (Added by TW Conv) MD CYSTO W/URETEROSCOPY W/LITHOTRIPSY Cystoscopy With Pyeloscopy With Lithotripsy - (Added by TW Conv) URINARY SURGERY 09/20/2020 - 10/17/2020 ABCESS DRAINAGE 20 yrs ago at [facility], on buttocks WISDOM TOOTH EXTRACTION 08/20/1979 - 08/19/1980 Medical History Medical History Date Comments MS (multiple sclerosis) (HCC) Migraine Depression Cognitive dysfunction accompanying multiple scle rosis (HCC) Renal stone Family History Medical History Relation Name Comments Arrhythmia Father Heart attack Father Atrial fibrillation Mother Coronary artery disease Mother Diabetes Mother Heart disease Mother Anesthesia problems Neg Hx Relation Name Status Comments Father Mother Alive Social History Tobacco Use Types Packs/Day Years [...] How often do you attend chur or latter-day services? More than 4 times per year 09/28/2020 Do you belong to any clubs o r organizations such as spiritism groups, unions, fraternal or athletic groups, or [...] on file Legal Sex Female 8:26 PM SHIP FASTENER Gender Identity Female 08/03/2023 12:15 PM SHIP FASTENER Sexual Orientation Straight 09/21/2021 12 :25 PM SHIP FASTENER Obstetrics History Last Filed Vital Signs Vital Sign Reading Time Taken Comments Blood Pressure 124/77 07/11/2024 10:16 AM SHIP FASTENER Pulse 65 07/11/2024 10:16 AM SHIP FASTENER Temperature 36.4 C (97.6 F) 04/09/2024 5:10 PM CDT Respiratory Rate 17 04/09/2024 8:00 PM CDT Oxygen Saturation 97% 07/11/2024 10:16 AM SHIP FASTENER Inhaled Oxygen Concentration - - Weight 69.9 kg (154 lb) 07/11/2024 10:16 AM SHIP FASTENER Height 170.2 cm (5' 7 ) 07/11/2024 10:16 AM SHIP FASTENER Body Mass Index 24.12 07/11/2024 10:16 AM SHIP FASTENER Plan of Treatment Health Maintenance Due Date Last Done Comments Breast Cancer Screening-Mammogram 1962 Cervical Cancer Screening 1962 Colon Cancer Screening-Colonoscopy 1962 Depression Screening 1962 Hepatitis C Screening 1962 DTaP/Tdap/Td Vaccine (1 - Tdap) 1973 Hepatitis B Screening 1980 Pneumococcal vaccine <65 (1 of 2 - PCV) 1981 Zoster Vaccine (1 of 2) 2012 Covid-19 Vaccine (5 - 2023-2 5 season) 2024 07/04/2024, 05/23/2021, 09/13/2020, Additional history exists Regular Well Visit/Exam 18-64 07/11/2025 07/11/2024 Influenza Vaccine Completed 05/02/2024, , 05/02/2020, Additional history exists Medical Devices Implanted Type Area Treating And Pumping Supervisor Device Identifier Shelf Expiration Date Model / Serial / Lot [employer] [id number] Inlay [place] Com[place] 6fr 24cm Pusher Fluoro Marker Atraumatic Insertion Latex Free - [id number] Implanted:Qty: 1 on 10/19/2020 by Shaun Vega MD at [facility] Stent Left: Ureter [employer] [id number] 01/09/2024 [id number] / / [id number] [employer] Universa 6fr 26cm Radiopaque Positioner Monofilament Tether 2 [id number] - [id number] Implanted:Qty: 1 on 11/24/2022 by Shaun Serna MD at [facility] Left: Ureter [employer] [id number] 10/09/2025 [id number] / / [id number] Explanted Type Area Treating And Pumping Supervisor Device Identifier Shelf Expiration Date Model / Serial / Lot [employer] [id number] Inlay Rocky [place]fort 6fr 24cm Pusher Fluoro Marker Atraumatic Insertion Latex Free - Sna - [id number] Implanted:Qty: 1 on 07/03/2018 by Valdez Reyes MD at [facility] Explanted:Qty: 1 on 07/10/2018 Stent Right: Ureter [employer] [id number] 07/06/2022 [id number] / NA / [id number] Description:Stents left on a string, per op note [employer] [id number] Inlay Rocky Comfort 6fr 24cm Pusher Fluoro Marker Atraumatic Insertion Latex Free - Sna - [id number] Implanted:Qty: 1 on 07/03/2018 by Valdez Reyes MD at [facility] Explanted:Qty: 1 on 07/10/2018 Stent Right: Ureter [employer] [id number] 07/06/2022 [id number] / NA / [id number] Description:Stents left on a string, per op note [employer] [id number] Inlay [employer]fort 6fr 26cm Pusher Fluoro Marker Atraumatic Insertion Latex Free - [id number] Implanted:Qty: 1 on 06/27/2018 by Patric Simms MD at [facility] Explanted:Qty: 1 on 07/03/2018 by Valdez Reyes MD at [facility] Right: Ureter [employer] [id number] 11/30/2021 [id number] / / [id number] [employer] [id number] Universa 6fr 24cm Radiopaque Graduate Firm Monofilament Tether - [id number] Implanted:Qty: 1 on 09/28/2020 by Shaun Vega MD at [facility] Explanted:Qty: 1 on 10/19/2020 at [facility] Left: Ureter [employer] 02/08/2023 [id number] / / [place] [address] [facility] CHOICE PLUS [facility] HMO/PPO Address: [address] [address] [place] [id number] [facility] HMO/PPO Address: [address] [facility] CHOICE PLUS [facility] HMO/PPO Address: [address] [address] [place], [place] [address] [place] [address] FEDERAL Advance Directives For more information, please contact: [phone] * Full Code (Latest Code Status on File) Date Activated Date Inactivated Comments 09/28/2020 3:45 AM 09/30/2020 9:21 PM * Full Code Date Activated Date Inactivated Comments 06/26/2018 10:18 PM 06/28/2018 2:21 PM Care Teams Gasket Inspector Relationship Specialty Start Date End Date Lisa Chapin MD [address] [address] PCP - General Internal Medicine 07/11/24
--- OUTSIDE RECORDS SUMMARY | 2024-10-27 19:05 | XMS_ITS | Encounter Summary ---
Author Organization [facility] Address [address] [place] [address] Care Team Providers Care Media Traffic Manager Name Role Phone Michael Bryant MD Primary Care Provider [phone] Encounter Details Date Type Department Care Team (Late st Contact Info) Description 12/01/2003 Outpatient Historical [facility] Davina Cueto MD [address] [facility] [address] [place] [address] MULTIPLE SCLEROSIS (CMS/HCC) (Primary Dx) Social History Tobacco Use Types Packs/Day Years Used Date Smoking Tobacco: Never Assessed Comments Unknown Sex and Gender Information Value Date Recorded Sex Assigned at Not on file Legal Sex Female 3:03 AM PERSONAL PROPERTY APPRAISER Gender Identity Not on file Sexual Orientation Not on file documented as of this encounter Plan of Treatment Not on file documented as of this encounter Visit Diagnoses Diagnosis Multiple sclerosis (CMS/HCC)- Primary Multiple sclerosis documented in this encounter Care Teams Media Traffic Manager Relationship Specialty Start Date End Date Michael Bryant MD [address] [facility] [address] [place] [address] PCP - General 08/06/15 documented as of this encounter
--- OUTSIDE RECORDS SUMMARY | 2024-10-27 19:05 | XMS_ITS | Encounter Summary ---
Author Organization [facility] Address [address] [place] [address] Care Team Providers Care Administrative Associate Name Role Phone Michael Bryant MD Primary Care Provider [phone] Encounter Details Date Type Department Care Team (Late st Contact Info) Description 08/16/2007 Outpatient Historical [facility] MRI DEPT Davina Cueto MD [address] [facility] [address] [place] [address] Multiple Sclerosis (CMS/HCC) Social History Tobacco Use Types Packs/Day Years Used Date Smoking Tobacco: Never Assessed Comments Unknown Sex and Gender Information Value Date Recorded Sex Assigned at Not on file Legal Sex Female 3:03 AM AMMUNITION SUPERVISOR Gender Identity Not on file Sexual Orientation Not on file documented as of this encounter Plan of Treatment Not on file documented as of this encounter Visit Diagnoses Diagnosis Multiple sclerosis (CMS/HCC) Multiple sclerosis documented in this encounter Care Teams Administrative Associate Relationship Specialty Start Date End Date Michael Bryant MD [address] [facility] [address] [place] [address] PCP - General 08/06/15 documented as of this encounter
--- OUTSIDE RECORDS SUMMARY | 2024-10-27 19:05 | XMS_ITS | Encounter Summary ---
Author Organization [facility] Address [address] [place] [address] Care Team Providers Care It Coordinator Name Role Phone Michael Bryant MD Primary Care Provider [phone] Encounter Details Date Type Department Care Team (Late st Contact Info) Description 10/23/2005 Outpatient [facility] Division of Neurology [address] [facility] [address] Davina Cueto MD [address] [facility] [address] [place] [address] Social History Tobacco Use Types Packs/Day Years Used Date Smoking Tobacco: Never Assessed Comments Unknown Sex and Gender Information Value Date Recorded Sex Assigned at Not on file Legal Sex Female 3:03 AM STAPLE FIBER WASHER Gender Identity Not on file Sexual Orientation Not on file documented as of this encounter Plan of Treatment Not on file documented as of this encounter Visit Diagnoses Not on filedocumented in this encounter Care Teams It Coordinator Relationship Specialty Start Date End Date Michael Bryant MD [address] [facility] [address] [place] [address] PCP - General 08/06/15 documented as of this encounter
--- OUTSIDE RECORDS SUMMARY | 2024-10-27 19:05 | XMS_ITS | Clinical Summary ---
Author Organization [facility] Administrative Offices Address [address] [place] [address] Care Team Providers Care Helicopter Officer Name Role Phone Michael Bryant MD Primary Care Provider [phone] Allergies No known active allergies Medications clorazepate (TRANXENE) 7.5 mg tabletIndicati ons:Multiple sclerosis (CMS/HCC) Take 1 Tablet (7.5 mg) by mouth 2 times daily. 180 Tablet 1 7 Active MAXALT-INFORMATION TECHNOLOGY ASSOCIATE 10 mg Tablet, Rapid Dissolve Take 1 tab at onset of Migraine/Headache, May Repeat in 2 hours if necessary, max dose 20 mg in a 24 hr period, (#18 is day supply). 18 Tablet 3 7 Active traMADol (ULTRAM) 50 mg tabletIndicati ons:Left leg pain Take 1 Tablet (50 mg) by mouth every 6 hours as needed for Pain. 100 Tablet 1 8 Active gabapentin (NEURONTIN) 300 mg capsule TAKE 1 CAPSULE THREE TIMES A DAY. 270 Capsule 1 8 Active fingolimod (GILENYA) 0.5 mg CapsuleIndicat ions:Multiple sclerosis (CMS/HCC) Take 1 Capsule (0.5 mg) by mouth daily. 90 Capsule 1 8 Active escitalopram oxalate (LEXAPRO) 10 mg tabletIndicati ons:Multiple sclerosis (CMS/HCC) TAKE 1 TABLET DAILY. 90 Tablet 3 8 Active predniSONE (DELTASONE) 20 mg tablet Take 1 Tablet (20 mg) by mouth see administration instructions Take #3 po qam for 4 days, then #2 po qam for 4 days and then #1 po qam for 4 days.. 24 Tablet 8 Active Active Problems Problem Noted Date Diagnosed Date Vision impairment 04/19/2016 Cognitive dysfunction accompanying multiple scle rosis 03/05/2016 Right foot injury 02/02/2015 Medication monitoring encounter 02/02/2015 MS (multiple sclerosis) 01/09/2014 Overview (03/05/2016): DMT JCV Antibody Negative 04/28/15 Index 0.16 1 Betaseron [id number] 2. Copaxone 1674-0333 skin lesions 3. Avonex 2001-04/2015 4. Gilenya 05/05/15- present Depression 01/09/2014 Renal stones 01/09/2014 Migraine 01/09/2014 Immunizations Immunization Administration Dates Next Due Influenza Vaccine Split 3+ Yrs IM 05/31/2016 Influenza Vaccine Split 3+ Yrs PF IM 06/30/2017 Family History Medical History Relation Name Comments Diabetes Father Other Father Heart Attack Diabetes Mother Relation Name Status Comments Father Mother Social History Tobacco Use Types Packs/Day Years Used Date Smoking Tobacco: Former Smokeless Tobacco: Never Alcohol Use Standard Drinks/Week Comments Yes 0 (1 standard drink = 0.6 oz pur e alcohol) Social Comments No Sex and Gender Information Value Date Recorded Sex Assigned at Not on file Legal Sex Female 3:03 AM GUITAR REPAIRER Gender Identity Not on file Sexual Orientation Not on file Occupation Industry Job Start Date Job End Date Not on file Not on file Not on file Not on file Last Filed Vital Signs Vital Sign Reading Time Taken Comments Blood Pressure 100/60 09/04/2017 2:00 PM GUITAR REPAIRER Pulse 64 09/04/2017 2:00 PM GUITAR REPAIRER Temperature 36.5 C (97.7 F) 12/19/2016 3:06 PM CDT Respiratory Rate - - Oxygen Saturation - - Inhaled Oxygen Concentration - - Weight 59 kg (130 lb) 09/04/2017 2:00 PM GUITAR REPAIRER Height 170.2 cm (5' 7 ) 09/04/2017 2:00 PM GUITAR REPAIRER Body Mass Index 20.36 09/04/2017 2:00 PM GUITAR REPAIRER Plan of Treatment Health Maintenance Due Date Last Done Comments DTAP/TDAP/TD VACCINES (1 - Tdap) 1981 CERVICAL CANCER SCREENING 1992 BREAST CANCER SCREENING 2002 COLORECTAL SCREENING 2007 Colorectal Cancer Screening 2007 FIT-DNA Q 3 years 2007 FIT/FOBT Q 1 year 2007 Flex Sig/CT Colonography Q 5 years 2007 ZOSTER VACCINE (1 of 2) 2012 INFLUENZA VACCINE (#1) 2024 7, 05/31/2016 RSV VACCINE (60+ or ) (1 - 1-dose 75+ series) 2037 PNEUMOCOCCAL VACCINE 0-49 YEARS Aged Out No longer eligible b ased on patient's age to complete this topic Insurance Member Subscriber Plan / Payer (Ef fective 2021-Present) Name:Maria Luz Jean Relation to Subscriber:Spouse Name:RAINSLADE Garces Date of :1957 (Home) Address: [address] [place], [place] [id number] Payer ID:[id number] (NAIC) Type:PPO Address: [address] Care Teams Helicopter Officer Relationship Specialty Start Date End Date Michael Bryant MD [address] [facility] [address] [address] PCP - General 08/06/15
== END 2024-10-27 16:52 | disposition home or self-care (01) ==
DX: G35 Multiple sclerosis (principal)
CPT/HCPCS: 36415; 80053; 85025

== ENCOUNTER 2024-12-04 14:45 | Outpatient (CLI) | payer BC, OTHER, SELFPAY ==
--- OUTSIDE RECORDS SUMMARY | 2024-12-04 14:48 | XMS_ITS | Encounter Summary ---
Author Organization [facility] Address [address] [place] [address] Care Team Providers Care Change House Attendant Name Role Phone Michael Bryant MD Primary Care Provider [phone] Encounter Details Date Type Department Care Team (Late st Contact Info) Description 01/23/[address] [facility] [address] [address] Davina Cueto MD [address] [facility] [address] [place] [address] Social History Tobacco Use Types Packs/Day Years Used Date Smoking Tobacco: Never Assessed Comments Unknown Sex and Gender Information Value Date Recorded Sex Assigned at Not on file Legal Sex Female 3:03 AM LITIGATION ASSOCIATE Gender Identity Not on file Sexual Orientation Not on file documented as of this encounter Plan of Treatment Not on file documented as of this encounter Visit Diagnoses Not on filedocumented in this encounter Care Teams Change House Attendant Relationship Specialty Start Date End Date Michael Bryant MD [address] [facility] [address] [place] [address] PCP - General 08/06/15 documented as of this encounter
--- OUTSIDE RECORDS SUMMARY | 2024-12-04 14:48 | XMS_ITS | Encounter Summary ---
Author Organization [facility] Address [address] [place] [address] Care Team Providers Care Legal Department Manager Name Role Phone Michael Bryant MD Primary Care Provider [phone] Encounter Details Date Type Department Care Team (Late st Contact Info) Description 11/17/2003 Outpatient Historical Division of Neurology [address] [facility] [address] Davina Cueto MD [address] [facility] [address] [place] [address] Social History Tobacco Use Types Packs/Day Years Used Date Smoking Tobacco: Never Assessed Comments Unknown Sex and Gender Information Value Date Recorded Sex Assigned at Not on file Legal Sex Female 3:03 AM LASER BEAM CUTTER Gender Identity Not on file Sexual Orientation Not on file documented as of this encounter Plan of Treatment Not on file documented as of this encounter Visit Diagnoses Not on filedocumented in this encounter Care Teams Legal Department Manager Relationship Specialty Start Date End Date Michael Bryant MD [address] [facility] [address] [place] [address] PCP - General 08/06/15 documented as of this encounter
--- OUTSIDE RECORDS SUMMARY | 2024-12-04 14:48 | XMS_ITS | Encounter Summary ---
Author Organization [facility] Address [address] [place] [address] Care Team Providers Care Supervisor Tank Cleaning Name Role Phone Michael Bryant MD Primary Care Provider [phone] Encounter Details Date Type Department Care Team (Late st Contact Info) Description 08/16/2007 Outpatient Historical [facility] MRI DEPT Davina Cueto MD [address] [facility] [address] [place] [address] Multiple Sclerosis (CMS/HCC) Social History Tobacco Use Types Packs/Day Years Used Date Smoking Tobacco: Never Assessed Comments Unknown Sex and Gender Information Value Date Recorded Sex Assigned at Not on file Legal Sex Female 3:03 AM SENIOR PASTOR Gender Identity Not on file Sexual Orientation Not on file documented as of this encounter Plan of Treatment Not on file documented as of this encounter Visit Diagnoses Diagnosis Multiple sclerosis (CMS/HCC) Multiple sclerosis documented in this encounter Care Teams Supervisor Tank Cleaning Relationship Specialty Start Date End Date Michael Bryant MD [address] [facility] [address] [place] [address] PCP - General 08/06/15 documented as of this encounter
--- OUTSIDE RECORDS SUMMARY | 2024-12-04 14:48 | XMS_ITS | Encounter Summary ---
Author Organization [facility] Address [address] [place] [address] Phone Care Team Providers Care Title I Assistant Name Role Phone Michael Bryant MD Primary Care Provider [phone] Reason for Visit * Reason Comments Medication Refill Encounter Details Date Type Department Care Team (Late st Contact Info) Description 06/14/2016 Refill [facility] [address] [address] Melanie Diana, [facility] [address] Sarah Brink [facility] [place] [address] Social History Tobacco Use Types Packs/Day Years Used Date Smoking Tobacco: Former Smokeless Tobacco: Never Alcohol Use Standard Drinks/Week Comments Yes 0 (1 standard drink = 0.6 oz pur e alcohol) Social Comments No Sex and Gender Information Value Date Recorded Sex Assigned at Not on file Legal Sex Female 3:03 AM SALES AND MERCHANDISING ASSOCIATE Gender Identity Not on file Sexual Orientation Not on file Occupation Industry Job Start Date Job End Date Not on file Not on file Not on file Not on file documented as of this encounter Plan of Treatment Not on file documented as of this encounter Visit Diagnoses Not on filedocumented in this encounter Care Teams Title I Assistant Relationship Specialty Start Date End Date Michael Bryant MD [address] [facility] [address] [place] [address] PCP - General 08/06/15 documented as of this encounter
--- OUTSIDE RECORDS SUMMARY | 2024-12-04 14:48 | XMS_ITS | Encounter Summary ---
Author Organization [facility] Address [address] [place] [address] Care Team Providers Care Pension Consultant Name Role Phone Michael Bryant MD Primary Care Provider [phone] Encounter Details Date Type Department Care Team (Late st Contact Info) Description 12/01/2003 Outpatient Historical [facility] MRI DEPT Davina Cueto MD [address] [facility] [address] [place] [address] MULTIPLE SCLEROSIS (CMS/HCC) (Primary Dx) Social History Tobacco Use Types Packs/Day Years Used Date Smoking Tobacco: Never Assessed Comments Unknown Sex and Gender Information Value Date Recorded Sex Assigned at Not on file Legal Sex Female 3:03 AM COMMUNICATION STUDIES PROFESSOR Gender Identity Not on file Sexual Orientation Not on file documented as of this encounter Plan of Treatment Not on file documented as of this encounter Visit Diagnoses Diagnosis Multiple sclerosis (CMS/HCC)- Primary Multiple sclerosis documented in this encounter Care Teams Pension Consultant Relationship Specialty Start Date End Date Michael Bryant MD [address] [facility] [address] [place] [address] PCP - General 08/06/15 documented as of this encounter
--- OUTSIDE RECORDS SUMMARY | 2024-12-04 14:49 | XMS_ITS | Encounter Summary ---
Author Organization [facility] Address [address] [place] [address] Care Team Providers Care Shank Skinner Name Role Phone Michael Bryant MD Primary Care Provider [phone] Encounter Details Date Type Department Care Team (Late st Contact Info) Description 01/10/2007 Outpatient Historical [facility] [address] [address] Davina Cueto MD [address] [facility] [address] [place] [address] Social History Tobacco Use Types Packs/Day Years Used Date Smoking Tobacco: Never Assessed Comments Unknown Sex and Gender Information Value Date Recorded Sex Assigned at Not on file Legal Sex Female 3:03 AM APPLIED TECHNOLOGIST Gender Identity Not on file Sexual Orientation Not on file documented as of this encounter Plan of Treatment Not on file documented as of this encounter Visit Diagnoses Not on filedocumented in this encounter Care Teams Shank Skinner Relationship Specialty Start Date End Date Michael Bryant MD [address] [facility] [address] [place] [address] PCP - General 08/06/15 documented as of this encounter
--- OUTSIDE RECORDS SUMMARY | 2024-12-04 14:49 | XMS_ITS | Encounter Summary ---
Author Organization [facility] Address [address] [place] [address] Care Team Providers Care Engraver Automatic Name Role Phone Michael Bryant MD Primary Care Provider [phone] Encounter Details Date Type Department Care Team (Late st Contact Info) Description 11/08/2006 Outpatient [facility] Division of Neurology [address] [address] Davina Cueto MD [address] [facility] [address] [place] [address] Social History Tobacco Use Types Packs/Day Years Used Date Smoking Tobacco: Never Assessed Comments Unknown Sex and Gender Information Value Date Recorded Sex Assigned at Not on file Legal Sex Female 3:03 AM WIRE TRANSFER CLERK Gender Identity Not on file Sexual Orientation Not on file documented as of this encounter Plan of Treatment Not on file documented as of this encounter Visit Diagnoses Not on filedocumented in this encounter Care Teams Engraver Automatic Relationship Specialty Start Date End Date Michael Bryant MD [address] [facility] [address] [place] [address] PCP - General 08/06/15 documented as of this encounter
--- OUTSIDE RECORDS SUMMARY | 2024-12-04 14:49 | XMS_ITS | Encounter Summary ---
Author Organization [facility] Address [address] [place] [address] Care Team Providers Care Arc Welding Machine Operator Name Role Phone Michael Bryant MD Primary Care Provider [phone] Encounter Details Date Type Department Care Team (Late st Contact Info) Description 10/31/2004 Outpatient [facility] Division of Neurology [address] [address] Davina Cueto MD [address] [facility] [address] [place] [address] Social History Tobacco Use Types Packs/Day Years Used Date Smoking Tobacco: Never Assessed Comments Unknown Sex and Gender Information Value Date Recorded Sex Assigned at Not on file Legal Sex Female 3:03 AM AUTOMATION CONTROLS ENGINEER Gender Identity Not on file Sexual Orientation Not on file documented as of this encounter Plan of Treatment Not on file documented as of this encounter Visit Diagnoses Not on filedocumented in this encounter Care Teams Arc Welding Machine Operator Relationship Specialty Start Date End Date Michael Bryant MD [address] [facility] [address] [place] [address] PCP - General 08/06/15 documented as of this encounter
--- OUTSIDE RECORDS SUMMARY | 2024-12-04 14:49 | XMS_ITS | Clinical Summary ---
Author Organization [facility] Administrative Offices Address [address] [place] [address] Care Team Providers Care Hooker Up Name Role Phone Michael Bryant MD Primary Care Provider [phone] Allergies No known active allergies Medications clorazepate (TRANXENE) 7.5 mg tabletIndicati ons:Multiple sclerosis (CMS/HCC) Take 1 Tablet (7.5 mg) by mouth 2 times daily. 180 Tablet 1 7 Active MAXALT-LOGISTICS ENGINEER 10 mg Tablet, Rapid Dissolve Take 1 [...] Antibody Negative 04/28/15 Index 0.16 1 Betaseron [id number] 2. Copaxone 5604-1462 skin lesions 3. Avonex 2001-04/2015 4. Gilenya [...] on file Legal Sex Female 3:03 AM JUKEBOX ROUTE DRIVER Gender Identity Not on file Sexual Orientation Not on file Occupation Industry Job Start Date Job End Date Not on file Not on file Not on file Not on file Last Filed Vital Signs Vital Sign Reading Time Taken Comments Blood Pressure 100/60 09/04/2017 2:00 PM JUKEBOX ROUTE DRIVER Pulse 64 09/04/2017 2:00 PM JUKEBOX ROUTE DRIVER Temperature 36.5 C (97.7 F) 12/19/2016 3:06 PM CDT Respiratory Rate - - Oxygen Saturation - - Inhaled Oxygen Concentration - - Weight 59 kg (130 lb) 09/04/2017 2:00 PM JUKEBOX ROUTE DRIVER Height 170.2 cm (5' 7 ) 09/04/2017 2:00 PM JUKEBOX ROUTE DRIVER Body Mass Index 20.36 09/04/2017 2:00 PM JUKEBOX ROUTE DRIVER Plan of Treatment Health Maintenance Due Date Last Done Comments DTAP/TDAP/TD VACCINES (1 - Tdap) 1981 HPV/Cotest (21-29) 1983 CERVICAL CANCER SCREENING 1992 HPV/Cotest (30-65) 1992 PAP SMEAR 1992 BREAST CANCER SCREENING 2002 COLORECTAL SCREENING 2007 Colorectal Cancer Screening 2007 FIT-DNA Q 3 years 2007 FIT/FOBT Q 1 year 2007 Flex Sig/CT Colonography Q 5 years 2007 ZOSTER VACCINE (1 of 2) 2012 INFLUENZA VACCINE (#1) 2024 06/30/2017, 2015 RSV VACCINE (60+ or ) (1 - 1-dose 75+ series) 2037 Insurance Care Teams Hooker Up Relationship Specialty Start Date End Date Michael Bryant MD [address] [facility] [address] [address] PCP - General 08/06/15
--- OUTSIDE RECORDS SUMMARY | 2024-12-04 14:49 | XMS_ITS | Encounter Summary ---
Author Organization [facility] Address [address] [place] [address] Care Team Providers Care Bull Bucker Name Role Phone Michael Bryant MD Primary Care Provider [phone] Encounter Details Date Type Department Care Team (Late st Contact Info) Description 04/29/2004 Outpatient Historical Division of Neurology [address] [address] Davina Cueto MD [address] [facility] [address] [place] [address] Social History Tobacco Use Types Packs/Day Years Used Date Smoking Tobacco: Never Assessed Comments Unknown Sex and Gender Information Value Date Recorded Sex Assigned at Not on file Legal Sex Female 3:03 AM PROMOTIONAL REPRESENTATIVE Gender Identity Not on file Sexual Orientation Not on file documented as of this encounter Plan of Treatment Not on file documented as of this encounter Visit Diagnoses Not on filedocumented in this encounter Care Teams Bull Bucker Relationship Specialty Start Date End Date Michael Bryant MD [address] [facility] [address] [place] [address] PCP - General 08/06/15 documented as of this encounter
--- OUTSIDE RECORDS SUMMARY | 2024-12-04 14:49 | XMS_ITS | Encounter Summary ---
Author Organization [facility] Address [address] [place] [address] Care Team Providers Care Precision Agriculture Specialist Name Role Phone Michael Bryant MD Primary Care Provider [phone] Encounter Details Date Type Department Care Team (Late st Contact Info) Description 05/03/2006 Outpatient [facility] Division of Neurology [address] [address] Davina Cueto MD [address] [facility] [address] [place] [address] Social History Tobacco Use Types Packs/Day Years Used Date Smoking Tobacco: Never Assessed Comments Unknown Sex and Gender Information Value Date Recorded Sex Assigned at Not on file Legal Sex Female 3:03 AM ENGAGEMENT LEAD Gender Identity Not on file Sexual Orientation Not on file documented as of this encounter Plan of Treatment Not on file documented as of this encounter Visit Diagnoses Not on filedocumented in this encounter Care Teams Precision Agriculture Specialist Relationship Specialty Start Date End Date Michael Bryant MD [address] [facility] [address] [place] [address] PCP - General 08/06/15 documented as of this encounter
--- OUTSIDE RECORDS SUMMARY | 2024-12-04 14:49 | XMS_ITS | Encounter Summary ---
Author Organization [facility] Address [address] [place] [address] Care Team Providers Care Registered Nurse Step Down Name Role Phone Michael Bryant MD Primary Care Provider [phone] Encounter Details Date Type Department Care Team (Late st Contact Info) Description 05/08/2005 Outpatient Historical Division of Neurology [address] [address] Davina Cueto MD [address] [facility] [address] [place] [address] Social History Tobacco Use Types Packs/Day Years Used Date Smoking Tobacco: Never Assessed Comments Unknown Sex and Gender Information Value Date Recorded Sex Assigned at Not on file Legal Sex Female 3:03 AM SERVICE GIRL Gender Identity Not on file Sexual Orientation Not on file documented as of this encounter Plan of Treatment Not on file documented as of this encounter Visit Diagnoses Not on filedocumented in this encounter Care Teams Registered Nurse Step Down Relationship Specialty Start Date End Date Michael Bryant MD [address] [facility] [address] [place] [address] PCP - General 08/06/15 documented as of this encounter
--- OUTSIDE RECORDS SUMMARY | 2024-12-04 14:49 | XMS_ITS | Encounter Summary ---
Author Organization [facility] Address [address] [place] [address] Care Team Providers Care Stenciling Machine Tender Name Role Phone Michael Bryant MD Primary Care Provider [phone] Encounter Details Date Type Department Care Team (Late st Contact Info) Description 10/23/2005 Outpatient [facility] Division of Neurology [address] [address] Davina Cueto MD [address] [facility] [address] [place] [address] Social History Tobacco Use Types Packs/Day Years Used Date Smoking Tobacco: Never Assessed Comments Unknown Sex and Gender Information Value Date Recorded Sex Assigned at Not on file Legal Sex Female 3:03 AM COUNTER PERSON Gender Identity Not on file Sexual Orientation Not on file documented as of this encounter Plan of Treatment Not on file documented as of this encounter Visit Diagnoses Not on filedocumented in this encounter Care Teams Stenciling Machine Tender Relationship Specialty Start Date End Date Michael Bryant MD [address] [facility] [address] [place] [address] PCP - General 08/06/15 documented as of this encounter
--- OUTSIDE RECORDS SUMMARY | 2024-12-04 14:49 | XMS_ITS | Continuity of Care Document ---
Author Organization [facility] Address [address] [place] [address] Phone Care Team Providers Care Loader Operator/Ground Leader Name Role Phone Jaya Huggins MD Unavailable [...] - Active Procedures Procedure Date OFFICE/OUTPATIENT VISIT, [facility] VISUAL FIELD EXAMINATION(S) REFRACTION Advance Directives Directive Yes / No Effective Date File Name No Information Encounters Encounter Description Practice Location Reason(s) For Visit Diagnoses Date Provider Providers Copied on Encounter OFFICE/OUTPA TIENT VISIT, [facility], [address], [place], [place], [id number], [place] tel:[phone] OPH CONSULT AJIT MAHER Multiple sclerosisOptic neuritis, unspecifiedMyo vishal [address] [place] [facility], [address], [place], [address], [place]. tel:[phone] Referring Provider: Davina Cueto MD, [address], [place], [address]. tel:[phone] Family History Family Member Type Diagnosis Age At Onset Father Problem (finding) diabetes melli tus in first degree relative Mother Problem (finding) diabetes melli tus in first degree relative Payers Payer name Insurance type Covered constitution party ID Authoriza tion(s) [facility] [id number] Social History Type Description Quantity Date Captured Comments Alcohol Use Details Unknown Caffeine Use Details Unknown Tobacco Use Status No Information Smoking Status Former smoker Sex Female Chief Complaint And Reason For Visit No Information Reason For Referral Reason For Referral No Information History Of Present Illness Encounter Date Complaint History Of Prese nt Illness No Information Functional Status Date Functional Assessmen t No Information Instructions Date Instruction Additional Infor enrriquezofia - Return in 6 months with Jaya [...] Myopia Assessments Type Assessment Date No Information Patient Care Teams Name Effective Dates (start - stop) Status Members No Information
--- OUTSIDE RECORDS SUMMARY | 2024-12-04 14:49 | XMS_ITS | Encounter Summary ---
Author Organization [facility] Address [address] [place] [address] Care Team Providers Care Automobile Club Travel Counselor Name Role Phone Michael Bryant MD Primary Care Provider [phone] Encounter Details Date Type Department Care Team (Late st Contact Info) Description 12/11/2006 Outpatient Historical [facility] [address] [address] [facility] [address] Davina Cueto MD [address] [place] [address] Social History Tobacco Use Types Packs/Day Years Used Date Smoking Tobacco: Never Assessed Comments Unknown Sex and Gender Information Value Date Recorded Sex Assigned at Not on file Legal Sex Female 3:03 AM SAW RUNNER Gender Identity Not on file Sexual Orientation Not on file documented as of this encounter Plan of Treatment Not on file documented as of this encounter Visit Diagnoses Not on filedocumented in this encounter Care Teams Automobile Club Travel Counselor Relationship Specialty Start Date End Date Michael Bryant MD [address] [facility] [address] [place] [address] PCP - General 08/06/15 documented as of this encounter
[2024-12-04 19:39] LABS: Vitamin D 25 Hydroxy 39.3 ng/mL
== END 2024-12-04 14:46 | disposition home or self-care (01) ==
PROVIDERS: Visit Provider Obstetrics & Gynecology Gynecology
DX: E55.9 Vitamin D deficiency, unspecified (principal)
CPT/HCPCS: 36415; 82306

== ENCOUNTER 2025-07-03 11:20 | Outpatient (CLI) | payer BC, SELFPAY ==
--- NOTE | ~2025-07-03 | MM_ITS ---
EXAMINATION: MM screening crystal BI w diana HISTORY: Screening TECHNIQUE: Craniocaudal and mediolateral oblique 3-D tomosynthesis images were obtained and synthetic 2-D images were generated. CAD analysis was submitted and interpreted. COMPARISON: Comparison to multiple prior studies sequentially, with oldest reviewed study dated 05/14/2019. BREAST PARENCHYMAL COMPOSITION: Dense: The breasts are heterogeneously dense, which may obscure small masses FINDINGS: There is no evidence of suspicious mass, calcification, or architectural distortion to suggest malignancy in either breast. There has been no suspicious interval change. IMPRESSION: 1. No mammographic evidence of malignancy. 2. Recommend routine screening mammography in one year. BI-RADS Category 1: Negative Reviewed, dictated and finalized at location B. CIPAL SCIENTIST
== END 2025-07-03 11:21 | disposition home or self-care (01) ==
PROVIDERS: PCP Nurse Practitioner; Visit Provider Nurse Practitioner
DX: Z12.31 Encounter for screening mammogram for malignant neoplasm of breast (principal)
CPT/HCPCS: 77063; 77067

== ENCOUNTER 2025-07-14 15:55 | Emergency (ER) | payer OTHER, BC, SELFPAY ==
--- NOTE | ~2025-07-14 | XR_ITS ---
EXAMINATION: XR knee RT min 4V DATE: 07/14/2025 17:12 INDICATION: Trauma today. TECHNIQUE: 3 views of the right knee were obtained. COMPARISON: None. Findings: Osteopenic bones. No acute fractures at the right knee. Small effusion is suggested. Arthritis of medial compartment. IMPRESSION: 1. 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 Small effusion in the knee joint. No acute fracture. If symptoms are localized and persistent MRI is indicated. Reviewed, dictated and finalized at location T. 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
[2025-07-14 15:56] VITALS: BP 132/65; PULSE 85; RESP 16; TEMP 36.6; O2SAT 99
--- OUTSIDE RECORDS SUMMARY | 2025-07-14 17:19 | XMS_ITS | Encounter Summary ---
Author Organization [facility] Address [address] [place] [address] Care Team Providers Care A R Specialist Name Role Phone Michael Bryant MD Primary Care Provider [phone] Encounter Details Date Type Department Care Team (Late st Contact Info) Description 05/03/2006 Outpatient Historical Division of Neurology [address] [facility] [address] [address] Davina Cueto MD [address] [facility] [address] [place] [address] Social History Tobacco Use Types Packs/Day Years Used Date Smoking Tobacco: Never Assessed Comments Unknown Sex and Gender Information Value Date Recorded Sex Assigned at Not on file Legal Sex Female 3:03 AM PUBLIC SAFETY TELECOMMUNICATOR Gender Identity Not on file Sexual Orientation Not on file documented as of this encounter Plan of Treatment Not on file documented as of this encounter Visit Diagnoses Not on filedocumented in this encounter Care Teams A R Specialist Relationship Specialty Start Date End Date Michael Bryant MD [address] [facility] [address] [place] [address] PCP - General 08/06/15 documented as of this encounter
--- OUTSIDE RECORDS SUMMARY | 2025-07-14 17:19 | XMS_ITS | Encounter Summary ---
Author Organization [facility] Address [address] [place] [address] Care Team Providers Care Water Pumper Name Role Phone Michael Bryant MD Primary Care Provider [phone] Encounter Details Date Type Department Care Team (Late st Contact Info) Description 11/17/2003 Outpatient Historical Division of Neurology [address] [facility] [address] [address] Davina Cueto MD [address] [facility] [address] [place] [address] Social History Tobacco Use Types Packs/Day Years Used Date Smoking Tobacco: Never Assessed Comments Unknown Sex and Gender Information Value Date Recorded Sex Assigned at Not on file Legal Sex Female 3:03 AM ROUTER OPERATOR RADIAL Gender Identity Not on file Sexual Orientation Not on file documented as of this encounter Plan of Treatment Not on file documented as of this encounter Visit Diagnoses Not on filedocumented in this encounter Care Teams Water Pumper Relationship Specialty Start Date End Date Michael Bryant MD [address] [facility] [address] [place] [address] PCP - General 08/06/15 documented as of this encounter
--- OUTSIDE RECORDS SUMMARY | 2025-07-14 17:19 | XMS_ITS | Encounter Summary ---
Author Organization [facility] Address [address] [place] [address] Care Team Providers Care Strings Teacher Name Role Phone Michael Bryant MD Primary Care Provider [phone] Encounter Details Date Type Department Care Team (Late st Contact Info) Description 04/29/2004 Outpatient Historical Division of Neurology [address] [facility] [address] [address] Davina Cueto MD [address] [facility] [address] [place] [address] Social History Tobacco Use Types Packs/Day Years Used Date Smoking Tobacco: Never Assessed Comments Unknown Sex and Gender Information Value Date Recorded Sex Assigned at Not on file Legal Sex Female 3:03 AM SURVEYOR GEOPHYSICAL PROSPECTING Gender Identity Not on file Sexual Orientation Not on file documented as of this encounter Plan of Treatment Not on file documented as of this encounter Visit Diagnoses Not on filedocumented in this encounter Care Teams Strings Teacher Relationship Specialty Start Date End Date Michael Bryant MD [address] [facility] [address] [place] [address] PCP - General 08/06/15 documented as of this encounter
--- OUTSIDE RECORDS SUMMARY | 2025-07-14 17:19 | XMS_ITS | Encounter Summary ---
Author Organization [facility] Address [address] [place] [address] Care Team Providers Care Automotive Sales Professional Name Role Phone Michael Bryant MD Primary Care Provider [phone] Encounter Details Date Type Department Care Team (Late st Contact Info) Description 12/11/2006 Outpatient Historical [facility] [address] [address] Davina Cueto MD [address] [place] [address] Social History Tobacco Use Types Packs/Day Years Used Date Smoking Tobacco: Never Assessed Comments Unknown Sex and Gender Information Value Date Recorded Sex Assigned at Not on file Legal Sex Female 3:03 AM DISEASE CASE MANAGER Gender Identity Not on file Sexual Orientation Not on file documented as of this encounter Plan of Treatment Not on file documented as of this encounter Visit Diagnoses Not on filedocumented in this encounter Care Teams Automotive Sales Professional Relationship Specialty Start Date End Date Michael Bryant MD [address] [facility] [address] [place] [address] PCP - General 08/06/15 documented as of this encounter
--- OUTSIDE RECORDS SUMMARY | 2025-07-14 17:19 | XMS_ITS | Encounter Summary ---
Author Organization [facility] Address [address] [place] [address] Care Team Providers Care Television Reporter Name Role Phone Michael Bryant MD Primary Care Provider [phone] Encounter Details Date Type Department Care Team (Late st Contact Info) Description 01/10/2007 Outpatient Historical [facility] [address] [address] Davina Cueto MD [address] [place] [address] Social History Tobacco Use Types Packs/Day Years Used Date Smoking Tobacco: Never Assessed Comments Unknown Sex and Gender Information Value Date Recorded Sex Assigned at Not on file Legal Sex Female 3:03 AM PUBLICATIONS EDITOR Gender Identity Not on file Sexual Orientation Not on file documented as of this encounter Plan of Treatment Not on file documented as of this encounter Visit Diagnoses Not on filedocumented in this encounter Care Teams Television Reporter Relationship Specialty Start Date End Date Michael Bryant MD [address] [facility] [address] [place] [address] PCP - General 08/06/15 documented as of this encounter
--- OUTSIDE RECORDS SUMMARY | 2025-07-14 17:19 | XMS_ITS | Encounter Summary ---
Author Organization [facility] Address [address] [place] [address] Care Team Providers Care Crook Operator Name Role Phone Michael Bryant MD Primary Care Provider Encounter Details Date Type Department Care Team (Late st Contact Info) Description 05/08/2005 Outpatient Historical Division of Neurology [address] [facility] [address] [address] Davina Cueto MD [address] [facility] [address] [place] [address] Social History Tobacco Use Types Packs/Day Years Used Date Smoking Tobacco: Never Assessed Comments Unknown Sex and Gender Information Value Date Recorded Sex Assigned at Not on file Legal Sex Female 3:03 AM HYDRAULIC CONTROLS TECHNICIAN Gender Identity Not on file Sexual Orientation Not on file documented as of this encounter Plan of Treatment Not on file documented as of this encounter Visit Diagnoses Not on filedocumented in this encounter Care Teams Crook Operator Relationship Specialty Start Date End Date Michael Bryant MD [address] [facility] [address] [place] [address] PCP - General 08/06/15 documented as of this encounter
--- OUTSIDE RECORDS SUMMARY | 2025-07-14 17:19 | XMS_ITS | Clinical Summary ---
Author Organization [facility] Address [address] [place] [address] Care Team Providers Care Home Office Claims Examiner Name Role Phone Lisa Chapin MD Primary Care Provider Allergies No known active allergies Medications naloxone (NARCAN) 4 mg/actuation spray,non-aero jono Administer 1 spray into affected nostril(s) as needed for opioid reversal or respiratory depression Call 911. Administer a single spray in one nostril. Repeat every 3 minutes as needed if no or minimal response. 1 each 3 05/22/20 22 Active cholecalcifero l (VITAMIN D-3) 25 mcg (1,000 unit) tablet Take 1 tablet (1,000 Units total) by mouth every morning Active traMADoL (ULTRAM) 50 mg tablet Take 1 tablet (50 mg total) by mouth every 6 (six) hours as needed for pain 20 tablet 08/27/19 24 Active clorazepate (TRANXENE) 7.5 mg tablet TAKE 1 TABLET BY MOUTH TWICE DAILY 180 tablet 1 02/03/20 25 Active gabapentin (NEURONTIN) 300 mg capsuleIndicat ions:MS (multiple sclerosis) TAKE 1 CAPSULE(300 MG) BY MOUTH THREE TIMES DAILY 90 capsule 4 03/23/20 25 Active fingolimod (GILENYA) 0.5 mg capsuleIndicat ions:Multiple sclerosis TAKE 1 CAPSULE BY MOUTH 1 TIME A DAY 30 capsule 5 05/05/20 25 Active escitalopram (LEXAPRO) 20 mg tabletIndicati ons:MS (multiple sclerosis),Susana ctive depression Take 1 tablet (20 mg total) by mouth daily 90 tablet 1 05/11/20 25 Active oxyBUTYnin XL (DITROPAN-XL) 5 mg 24 hr tablet TAKE 1 TABLET(5 MG) BY MOUTH DAILY 90 tablet 3 06/29/20 25 Active rizatriptan (MAXALT) 10 mg tabletIndicati ons:Migraine May repeat in 2 hours if unresolved. Do not exceed 30 mg in 24 hours. 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 S/p L URS (11/25/23) [small stone debris, possible stone w/in an excluded calyx]. DARNELL (12/22/22) - bilateral nonobstructing renal calculi. Plan - surveillance. 03/20/24: RP. DARNELL (03/20/24) - 3 mm nonobstructing stone in the midpole of the right kidney and 6 mm non-obstructing stone in the upper pole of the left kidney; no hydronephrosis. Asymptomatic. Plan - surveillance. 03/26/25: RP. CT AP w/o (04/09/24) - b/l non-obstructing stones (stable). DARNELL pending. 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 Betaseron [id number] skin abscess 2. Copaxone [id number] injection reactions 3. Avonex 2001-04/2015 injection fatigue 4. Gilenya 05/05/15-2022 5. fingolimod: 2022- Assessment & Plan (06/29/2025 10:16 AM BASKETBALL PLAYER): The patient is presenting for follow up of multiple sclerosis. She reports that since her last visit she has felt stable overall. She reports no significant new weakness, numbness, or vision changes. She reports some difficulty with walking what she is exerting herself for long periods of time and notes that this improves with rest. She also reports some ongoing weakness in her bilateral upper extremities with her right hand being more affected in her left hand. She also states she has some residual vision issues as a result of prior involvement in her optic nerves. She is tolerating fingolimod well without notable side effects. Her neurological exam shows no new neurological deficits. We discussed ongoing management of her multiple sclerosis. We discussed the risks and benefits of continuing disease modifying therapy versus discontinuing disease modifying therapy at age 67. We discussed that overall the clinical data showed roughly 90% of patients have no evidence of recurrent disease activity following drug discontinuation. There is a low risk, roughly 10%, of new disease activity. With fingolimod this risk is slightly increased risk of rebound disease activity. We discussed staying on fingolimod versus discontinuing the medication and he 67 versus transitioning to alternative medication such as Mavenclad to reduce the risk of rebound disease activity. The patient is agreeable to trialing off fingolimod age 67. We will continue to monitor her until then. I recommended an updated CBC and CMP for further evaluation tolerability of her fingolimod. I will prescribe her lab orders to be done in tandem with her blood work next month for her osteoporosis and encouraged her to have her provider fax results to our office. I encouraged her to continue to see Dermatology periodically for screening for skin cancer. I will see the patient back in follow up and instructed her to reach out if any questions arise before next visit. Renal stones 02/15/2012 Encounters Date Type Department Care Team Description 06/29/2025 9:00 AM BASKETBALL PLAYER Office Visit [facility] in [place] [id number] [address] [address] Kurt Childress MD MS (multiple sclerosis) (Primary Dx) from Last 3 Months Immunizations Immunization Administration Dates Next Due Flucelvax Influenza Quad 05/02/2024 Influenza, Quadrivalent, Spl it, Preservative Free, Intramuscular 05/15/2023,05/02/2020,05/29/2018,05/28 Influenza, Trivalent, IM (MDV) 05/31/2016,2012 Influenza, Trivalent, Preser vative Free, Intramuscular 06/29/2017,05/30/2016,06/14/2015 Influenza, Unspecified 04/29/2020 Moderna Sars-cov-2 Monovalen t Booster Vaccination (12+ YRS) 07/04/2024 Pfizer SARS-CoV-2 Monovalent Vaccination (12+ Yrs) PURPLE 05/23/2021,09/13/2020,08/23/2020 Surgical History Surgery Date Site/Laterality Comments WI LIG/TRNSXJ FLP TUBE ABDL/VAG APPR UNI/BI Tubal Ligation - (Added by TW Conv) WI CYSTO W/URETEROSCOPY W/LITHOTRIPSY Cystoscopy With Pyeloscopy With Lithotripsy - (Added by TW Conv) URINARY SURGERY 09/20/2020 - 10/17/2020 ABCESS DRAINAGE 20 yrs ago at [facility], on buttocks WISDOM TOOTH EXTRACTION 08/20/1979 - 08/19/1980 Medical History Medical History Date Comments MS (multiple sclerosis) Migraine Depression Cognitive dysfunction accompanying multiple scle rosis Renal stone Family History Medical History Relation [...] or ex-partner? No 09/28/2020 Social Connection and Isolation Panel Answer Date Recorded In a typical week, how many times do you talk on the phone with family, friends, or neighbors? Three times a week 09/28/2020 How often do you get togethe r with friends or relatives? Twice a week 09/28/2020 How often do you attend chur or episcopalian services? More than 4 times per year 09/28/2020 Do you belong to any clubs o r organizations such as advent groups, unions, fraternal or athletic groups, or [...] on file Legal Sex Female 8:26 PM BASKETBALL PLAYER Gender Identity Female 08/03/2023 12:15 PM BASKETBALL PLAYER Sexual Orientation Straight 09/21/2021 12 :25 PM BASKETBALL PLAYER Last Filed Vital Signs Vital Sign Reading Time Taken Comments Blood Pressure 120/65 06/29/2025 9:02 AM BASKETBALL PLAYER Pulse 68 10/30/2024 7:49 AM CDT Temperature 36.4 C (97.5 F) 06/29/2025 9:02 AM BASKETBALL PLAYER Respiratory Rate 17 04/09/2024 8:00 PM CDT Oxygen Saturation 99% 10/30/2024 7:49 AM CDT Inhaled Oxygen Concentration - - Weight 69.9 kg (154 lb) 06/29/2025 9:02 AM BASKETBALL PLAYER Height 170.2 cm (5' 7) 06/29/2025 9:02 AM BASKETBALL PLAYER Body Mass Index 24.12 06/29/2025 9:02 AM BASKETBALL PLAYER Plan of Treatment Health Maintenance Due Date Last Done Comments Breast Cancer Screening-Mammogram 1962 Cervical Cancer Screening 1962 Colon Cancer Screening-Colonoscopy 1962 Depression Screening 1962 Hepatitis C Screening 1962 DTaP/Tdap/Td Vaccine (1 - Tdap) 1973 Hepatitis B Screening 1980 Pneumococcal vaccine <65 (1 of 2 - PCV) 1981 Zoster Vaccine (1 of 2) 2012 Covid-19 Vaccine (5 - 2024-2 6 season) 2025 07/04/2024, 05/23/2021, 09/13/2020, Additional history exists Influenza Vaccine (#1) 2025 , 05/15/2023, 05/02/2020, Additional history exists Regular Well Visit/Exam 18-64 07/11/2025 07/11/2024 Medical Devices Implanted Type Area Radius Corner Machine Operator Device Identifier Shelf Expiration Date Model / Serial / Lot [employer] [id number] Inlay Chualar 6fr 24cm Pusher Fluoro Marker Atraumatic Insertion Latex Free - [id number] Implanted:Qty: 1 on 10/19/2020 by Shaun Vega MD at [facility] Stent Left: Ureter [employer] [id number] 01/09/2024 [id number] / / [id number] [employer] Universa 6fr 26cm Radiopaque Positioner Monofilament Tether 2 [id number] - [id number] Implanted:Qty: 1 on 11/24/2022 by Shaun Serna MD at [facility] Left: Ureter [employer] [id number] 10/09/2025 [id number] / / [id number] Explanted Type Area Radius Corner Machine Operator Device Identifier Shelf Expiration Date Model / Serial / Lot [employer] [id number] Inlay Chualar 6fr 24cm Pusher Fluoro Marker Atraumatic Insertion Latex Free - Sna - [id number] Implanted:Qty: 1 on 07/03/2018 by Valdez Reyes MD at [facility] Explanted:Qty: 1 on 07/10/2018 Stent Right: Ureter [employer] [id number] 07/06/2022 [id number] / NA / [id number] Description:Stents left on a string, per op note [employer] [id number] Inlay Chualar 6fr 24cm Pusher Fluoro Marker Atraumatic Insertion Latex Free - Sna - [id number] Implanted:Qty: 1 on 07/03/2018 by Valdez Reyes MD at [facility] Explanted:Qty: 1 on 07/10/2018 Stent Right: Ureter [employer] [id number] 07/06/2022 [id number] / NA / [id number] Description:Stents left on a string, per op note [employer] [id number] Inlay Chualar 6fr 26cm Pusher Fluoro Marker Atraumatic Insertion Latex Free - [id number] Implanted:Qty: 1 on 06/27/2018 by Patric Simms MD at [facility] Explanted:Qty: 1 on 07/03/2018 by Valdez Reyes MD at [facility] Right: Ureter [employer] [id number] 11/30/2021 [id number] / / [id number] [employer] [id number] Universa 6fr 24cm Radiopaque Graduate Firm Monofilament Tether - [id number] Implanted:Qty: 1 on 09/28/2020 by Shaun Vega MD at [facility] Explanted:Qty: 1 on 10/19/2020 at [facility] Left: Ureter [employer] 02/08/2023 [id number] / / Insurance [facility] FEDERAL FEDERAL FEDERAL Advance Directives For more information, please contact: [phone] * Full Code (Latest Code Status on File) Date Activated Date Inactivated Comments 09/28/2020 3:45 AM 09/30/2020 9:21 PM * Full Code Date Activated Date Inactivated Comments 06/26/2018 10:18 PM 06/28/2018 2:21 PM Care Teams Home Office Claims Examiner Relationship Specialty Start Date End Date Lisa Chapin MD [address] [address] PCP - General Internal Medicine 07/11/24
--- OUTSIDE RECORDS SUMMARY | 2025-07-14 17:19 | XMS_ITS | Clinical Summary ---
Author Organization [facility] Administrative Offices Address [address] [place] [address] Care Team Providers Care Associate Dentist Name Role Phone Michael Bryant MD Primary Care Provider [phone] Allergies No known active allergies Medications clorazepate (TRANXENE) 7.5 mg tabletIndicati ons:Multiple sclerosis Take 1 Tablet (7.5 mg) by mouth 2 times daily. 180 Tablet 1 7 Active MAXALT-MEMORIAL MARKER DESIGNER 10 mg Tablet, Rapid Dissolve Take 1 [...] fingolimod (GILENYA) 0.5 mg CapsuleIndicat ions:Multiple sclerosis Take 1 Capsule (0.5 mg) by mouth daily. 90 Capsule 1 8 Active escitalopram oxalate (LEXAPRO) 10 mg tabletIndicati ons:Multiple sclerosis TAKE 1 TABLET DAILY. 90 Tablet 3 [...] Antibody Negative 04/28/15 Index 0.16 1 Betaseron [id number] 2. Copaxone 4221-0196 skin lesions 3. Avonex 2001-04/2015 4. Gilenya [...] on file Legal Sex Female 3:03 AM PICTURES EDITOR Gender Identity Not on file Sexual Orientation Not on file Occupation Industry Job Start Date Job End Date Not on file Not on file Not on file Not on file Last Filed Vital Signs Vital Sign Reading Time Taken Comments Blood Pressure 100/60 09/04/2017 2:00 PM PICTURES EDITOR Pulse 64 09/04/2017 2:00 PM PICTURES EDITOR Temperature 36.5 C (97.7 F) 12/19/2016 3:06 PM CDT Respiratory Rate - - Oxygen Saturation - - Inhaled Oxygen Concentration - - Weight 59 kg (130 lb) 09/04/2017 2:00 PM PICTURES EDITOR Height 170.2 cm (5' 7) 09/04/2017 2:00 PM PICTURES EDITOR Body Mass Index 20.36 09/04/2017 2:00 PM PICTURES EDITOR Plan of Treatment Health Maintenance Due Date [...] (1 of 2) 2012 INFLUENZA VACCINE (#1) 2025 06/30/2017, 2015 RSV VACCINE (60+ or ) (1 - 1-dose 75+ series) 2037 Insurance [facility] OPTIONS PPO [id number] Member Subscriber Plan / Payer (Ef fective 2021-Present) Name:Maria Luz Jean Relation to Subscriber:Spouse Name:RAINSLADE Date of :1957 (Home) Address: [address] [place], [place] [id number] Payer ID:[id number] (NAIC) Type:PPO Address: [address] Care Teams Associate Dentist Relationship Specialty Start Date End Date Michael Bryant MD [address] [facility] [address] [address] [facility] - General 08/06/15
--- OUTSIDE RECORDS SUMMARY | 2025-07-14 17:19 | XMS_ITS | Encounter Summary ---
Author Organization [facility] Address [address] [place] [address] Care Team Providers Care Woven Paper Hat Mender Name Role Phone Michael Bryant MD Primary Care Provider Encounter Details Date Type Department Care Team (Late st Contact Info) Description 10/23/2005 Outpatient Historical Division of Neurology [address] [facility] [address] [address] Davina Cueto MD [address] [facility] [address] [place] [address] Social History Tobacco Use Types Packs/Day Years Used Date Smoking Tobacco: Never Assessed Comments Unknown Sex and Gender Information Value Date Recorded Sex Assigned at Not on file Legal Sex Female 3:03 AM POWER HOUSE CONTROL ROOM OPERATOR Gender Identity Not on file Sexual Orientation Not on file documented as of this encounter Plan of Treatment Not on file documented as of this encounter Visit Diagnoses Not on filedocumented in this encounter Care Teams Woven Paper Hat Mender Relationship Specialty Start Date End Date Michael Bryant MD [address] [facility] [address] [place] [address] PCP - General 08/06/15 documented as of this encounter
--- OUTSIDE RECORDS SUMMARY | 2025-07-14 17:19 | XMS_ITS | Encounter Summary ---
Author Organization [facility] Address [address] [place] [address] Phone Care Team Providers Care Hand Box Coverer Name Role Phone Michael Bryant MD Primary Care Provider [phone] Reason for Visit * Reason Comments Medication Refill Encounter Details Date Type Department Care Team (Late st Contact Info) Description 06/14/2016 Refill [address] [address] Melanie Diana, [facility] [address] [place] [address] Social History Tobacco Use Types Packs/Day Years Used Date Smoking Tobacco: Former Smokeless Tobacco: Never Alcohol Use Standard Drinks/Week Comments Yes 0 (1 standard drink = 0.6 oz pur e alcohol) Social Comments No Sex and Gender Information Value Date Recorded Sex Assigned at Not on file Legal Sex Female 3:03 AM BUTTON SPINDLER Gender Identity Not on file Sexual Orientation Not on file Occupation Industry Job Start Date Job End Date Not on file Not on file Not on file Not on file documented as of this encounter Plan of Treatment Not on file documented as of this encounter Visit Diagnoses Not on filedocumented in this encounter Care Teams Hand Box Coverer Relationship Specialty Start Date End Date Michael Bryant MD [address] [facility] [address] [place] [address] PCP - General 08/06/15 documented as of this encounter
--- OUTSIDE RECORDS SUMMARY | 2025-07-14 17:19 | XMS_ITS | Encounter Summary ---
Author Organization [facility] Address [address] [place] [address] Care Team Providers Care Educational Coordinator Name Role Phone Michael Bryant MD Primary Care Provider [phone] Encounter Details Date Type Department Care Team (Late st Contact Info) Description 12/01/2003 Outpatient Historical [facility] MRI DEPT Davina Cueto MD [address] [facility] [address] [place] [address] MULTIPLE SCLEROSIS (CMS/HCC) (Primary Dx) Social History Tobacco Use Types Packs/Day Years Used Date Smoking Tobacco: Never Assessed Comments Unknown Sex and Gender Information Value Date Recorded Sex Assigned at Not on file Legal Sex Female 3:03 AM DIRECTOR CAMP Gender Identity Not on file Sexual Orientation Not on file documented as of this encounter Plan of Treatment Not on file documented as of this encounter Visit Diagnoses Diagnosis Multiple sclerosis- Primary documented in this encounter Care Teams Educational Coordinator Relationship Specialty Start Date End Date Michael Bryant MD [address] [facility] [address] [place] [address] PCP - General 08/06/15 documented as of this encounter
--- OUTSIDE RECORDS SUMMARY | 2025-07-14 17:19 | XMS_ITS | Encounter Summary ---
Author Organization [facility] Address [address] [place] [address] Care Team Providers Care Sheetmetal Worker Name Role Phone Michael Bryant MD Primary Care Provider [phone] Encounter Details Date Type Department Care Team (Late st Contact Info) Description 01/23/2007 Outpatient Historical [facility] [address] [address] [address] [address] Davina Cueto MD [address] [facility] [address] [place] [address] Social History Tobacco Use Types Packs/Day Years Used Date Smoking Tobacco: Never Assessed Comments Unknown Sex and Gender Information Value Date Recorded Sex Assigned at Not on file Legal Sex Female 3:03 AM SILO OPERATOR Gender Identity Not on file Sexual Orientation Not on file documented as of this encounter Plan of Treatment Not on file documented as of this encounter Visit Diagnoses Not on filedocumented in this encounter Care Teams Sheetmetal Worker Relationship Specialty Start Date End Date Michael Bryant MD [address] [facility] [address] [place] [address] PCP - General 08/06/15 documented as of this encounter
--- OUTSIDE RECORDS SUMMARY | 2025-07-14 17:19 | XMS_ITS | Encounter Summary ---
Author Organization [facility] Address [address] [place] [address] Care Team Providers Care Hall Director Name Role Phone Michael Bryant MD Primary Care Provider [phone] Encounter Details Date Type Department Care Team (Late st Contact Info) Description 11/08/2006 Outpatient Historical Division of Neurology [address] [facility] [address] [address] Davina Cueto MD [address] [facility] [address] [place] [address] Social History Tobacco Use Types Packs/Day Years Used Date Smoking Tobacco: Never Assessed Comments Unknown Sex and Gender Information Value Date Recorded Sex Assigned at Not on file Legal Sex Female 3:03 AM CHURCH MUSICIAN Gender Identity Not on file Sexual Orientation Not on file documented as of this encounter Plan of Treatment Not on file documented as of this encounter Visit Diagnoses Not on filedocumented in this encounter Care Teams Hall Director Relationship Specialty Start Date End Date Michael Bryant MD [address] [facility] [address] [place] [address] PCP - General 08/06/15 documented as of this encounter
--- OUTSIDE RECORDS SUMMARY | 2025-07-14 17:19 | XMS_ITS | Encounter Summary ---
Author Organization [facility] Address [address] [place] [address] Care Team Providers Care Performance Reporter Name Role Phone Michael Bryant MD Primary Care Provider [phone] Encounter Details Date Type Department Care Team (Late st Contact Info) Description 10/31/2004 Outpatient Historical Division of Neurology [address] [facility] [address] [address] Davina Cueto MD [address] [facility] [address] [place] [address] Social History Tobacco Use Types Packs/Day Years Used Date Smoking Tobacco: Never Assessed Comments Unknown Sex and Gender Information Value Date Recorded Sex Assigned at Not on file Legal Sex Female 3:03 AM TRANSPORTATION MAINTENANCE WORKER Gender Identity Not on file Sexual Orientation Not on file documented as of this encounter Plan of Treatment Not on file documented as of this encounter Visit Diagnoses Not on filedocumented in this encounter Care Teams Performance Reporter Relationship Specialty Start Date End Date Michael Bryant MD [address] [facility] [address] [place] [address] PCP - General 08/06/15 documented as of this encounter
--- OUTSIDE RECORDS SUMMARY | 2025-07-14 17:19 | XMS_ITS | Encounter Summary ---
Author Organization [facility] Address [address] [place] [address] Care Team Providers Care Boiler Service Technician Name Role Phone Michael Bryant MD Primary Care Provider [phone] Encounter Details Date Type Department Care Team (Late st Contact Info) Description 08/16/2007 Outpatient Historical HIS MRI DEPT Davina Cueto MD [address] [facility] [address] [place] [address] Multiple Sclerosis (CMS/HCC) Social History Tobacco Use Types Packs/Day Years Used Date Smoking Tobacco: Never Assessed Comments Unknown Sex and Gender Information Value Date Recorded Sex Assigned at Not on file Legal Sex Female 3:03 AM DIRECTOR OF CAREER RESOURCES Gender Identity Not on file Sexual Orientation Not on file documented as of this encounter Plan of Treatment Not on file documented as of this encounter Visit Diagnoses Diagnosis Multiple sclerosis documented in this encounter Care Teams Boiler Service Technician Relationship Specialty Start Date End Date Michael Bryant MD [address] [facility] [address] [place] [address] PCP - General 08/06/15 documented as of this encounter
--- NOTE | 2025-07-14 17:46 | ED.LOWEXIN ---
HPI - Extremity Injury (Lower) General Chief Complaint: Extremity Injury, Lower Stated Complaint: FALL, R KNEE PAIN Time Seen by Provider: 07/14/25 17:38 Source: patient Mode of arrival: ambulatory Limitations: no limitations History of Present Illness HPI Narrative: This is a 65 year old female that presents to the ER for right knee pain. Reports she tripped while walking at work today and fell. Landed on her right knee. She did not hit her head or lose consciousness. Reports swelling and pain to the knee. Related Data Home Medications ?Medication ?Instructions ?Recorded ?Confirmed ?Last Taken ?Type aspirin 81 mg tablet,delayed 81 mg PO DAILY 06/23/20 10/22/23 Unknown History release cholecalciferol (vitamin D3) 25 25 mcg PO DAILY 06/23/20 10/22/23 Unknown History mcg (1,000 unit) tablet (Vitamin D3) clorazepate dipotassium 7.5 mg 7.5 mg PO HS PRN Anxiety 06/23/20 10/22/23 Unknown History tablet escitalopram oxalate 5 mg tablet 5 mg PO DAILY 06/23/20 10/22/23 Unknown History fingolimod 0.5 mg capsule (Gilenya) 0.5 mg PO DAILY 06/23/20 10/22/23 Unknown History oxybutynin chloride 5 mg tablet 5 mg PO BID 06/23/20 10/22/23 Unknown History Allergies Allergy/AdvReac Type Severity Reaction Status Date / Time No Known Allergies Allergy Mild Verified 07/14/25 15:56 Review of Systems Review of Systems: All systems reviewed & are unremarkable except as noted in HPI and below PMFSH Social History Social History Smoking packs per day: 0.25 Smoking cigarettes per day: 5.0 Years smoked: 20 Smoking pack-years: 5.00 Smoking status: Current some day smoker Tobacco type: cigarettes Spiritual care concerns: No Exam Narrative: GENERAL: Well-appearing, well-nourished, and in no acute distress. HEAD: Normocephalic, atraumatic. EYES: EOMI. EXTREMITIES: Normal range of motion. Mild edema about the right knee anteriorly. Normal DP pulse. Normal sensation SKIN: Warm, dry, no rash. NEURO: No focal deficits. Alert and oriented x3. PSYCH: Normal mood and affect Course Vital Signs Vital signs: Vital Signs Temperature 97.8 F 07/14/25 15:56 Pulse Rate 85 07/14/25 15:56 Respiratory Rate 16 07/14/25 15:56 Blood Pressure 132/65 07/14/25 15:56 Pulse Oximetry 99 07/14/25 15:56 Oxygen Delivery Room Air 07/14/25 15:56 Temperature 97.8 F 07/14/25 15:56 Pulse Rate 85 07/14/25 15:56 Respiratory Rate 16 07/14/25 15:56 Blood Pressure 132/65 07/14/25 15:56 Pulse Oximetry 99 07/14/25 15:56 Oxygen Delivery Room Air 07/14/25 15:56 MDM - Extremity Injury (Lower) MDM Narrative Medical decision making narrative: Patient presents to the emergency department after right knee injury. She is neurovascularly intact. Right knee x-ray without acute osseous abnormalities. Showing small joint effusion. Patient placed in knee immobilizer and given crutches. Will be given follow-up with Orthopedics Differential Diagnosis Differential diagnosis: Likely acute internal derangement of knee and other (Patellar fracture) Imaging Data Radiologist's impression: ITS Impressions Knee X-Ray 07/14/25 17:13 IMPRESSION: 1. 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 Small effusion in the knee joint. No acute fracture. If symptoms are localized and persistent MRI is indicated. Critical Care Time Critical Care Time Critical Care Time: No Discharge Plan Discharge Clinical Impression: Acute internal derangement of knee Patient Disposition: Home Condition: Stable Instructions: Knee Sprain (ED) Additional Instructions: Return to the ER if you experience fever, redness and swelling of your extremity, numbness or any other symptoms that are concerning to you Wear knee immobilizer and use crutches. No weight on the affected leg. Ice and elevate extremity. Pain medication as needed and directed. Follow up with orthopedics for further care. Patient Language: Gambian Prescriptions: No Action aspirin [Aspir-81] 81 mg Tablet,Delayed Release (Dr/Ec) 81 mg PO DAILY Patient Comments: .... oxybutynin chloride 5 mg Tablet 5 mg PO BID Patient Comments: . clorazepate dipotassium 7.5 mg Tablet 7.5 mg PO HS PRN (Reason: Anxiety) escitalopram oxalate 5 mg Tablet 5 mg PO DAILY cholecalciferol (vitamin D3) [Vitamin D3] 25 mcg (1,000 unit) Tablet 25 mcg PO DAILY Patient Comments: . fingolimod [Gilenya] 0.5 mg Capsule 0.5 mg PO DAILY Follow-up/Referrals: Ottoniel Varma MD [Physician, Orthopedics] PHYSICIAN NOT ON STAFF,NONSTAFF [Primary Care Provider]
--- OUTSIDE RECORDS SUMMARY | 2025-07-14 18:01 | XMS_ITS | Encounter Summary ---
Author Organization [facility] Address [address] [place] [address] Care Team Providers Care Manager Clinic Name Role Phone Michael Bryant MD Primary Care Provider Encounter Details Date Type Department Care Team (Late st Contact Info) Description 05/03/2006 Outpatient Historical Division of Neurology [address] [facility] [address] [address] Davina Cueto MD [address] [facility] [address] [place] [address] Social History Tobacco Use Types Packs/Day Years Used Date Smoking Tobacco: Never Assessed Comments Unknown Sex and Gender Information Value Date Recorded Sex Assigned at Not on file Legal Sex Female 3:03 AM OB GYN Gender Identity Not on file Sexual Orientation Not on file documented as of this encounter Plan of Treatment Not on file documented as of this encounter Visit Diagnoses Not on filedocumented in this encounter Care Teams Manager Clinic Relationship Specialty Start Date End Date Michael Bryant MD [address] [facility] [address] [place] [address] PCP - General 08/06/15 documented as of this encounter
--- OUTSIDE RECORDS SUMMARY | 2025-07-14 18:01 | XMS_ITS | Encounter Summary ---
Author Organization [facility] Address [address] [place] [address] Care Team Providers Care Metal Can Inspector Name Role Phone Michael Bryant MD Primary Care Provider [phone] Encounter Details Date Type Department Care Team (Late st Contact Info) Description 04/29/2004 Outpatient Historical Division of Neurology [address] [facility] [address] [address] Davina Cueto MD [address] [facility] [address] [place] [address] Social History Tobacco Use Types Packs/Day Years Used Date Smoking Tobacco: Never Assessed Comments Unknown Sex and Gender Information Value Date Recorded Sex Assigned at Not on file Legal Sex Female 3:03 AM SHIPPING ASSISTANT Gender Identity Not on file Sexual Orientation Not on file documented as of this encounter Plan of Treatment Not on file documented as of this encounter Visit Diagnoses Not on filedocumented in this encounter Care Teams Metal Can Inspector Relationship Specialty Start Date End Date Michael Bryant MD [address] [facility] [address] [place] [address] PCP - General 08/06/15 documented as of this encounter
--- OUTSIDE RECORDS SUMMARY | 2025-07-14 18:01 | XMS_ITS | Encounter Summary ---
Author Organization [facility] Address [address] [place] [address] Phone Care Team Providers Care Fish Grader Name Role Phone Michael Bryant MD Primary Care Provider [phone] Reason for Visit * Reason Comments Medication Refill Encounter Details Date Type Department Care Team (Late st Contact Info) Description 06/14/2016 [address] [address] Melanie Diana, [facility] [address] [place] [address] Social History Tobacco Use Types Packs/Day Years Used Date Smoking Tobacco: Former Smokeless Tobacco: Never Alcohol Use Standard Drinks/Week Comments Yes 0 (1 standard drink = 0.6 oz pur e alcohol) Social Comments No Sex and Gender Information Value Date Recorded Sex Assigned at Not on file Legal Sex Female 3:03 AM MECHANIST Gender Identity Not on file Sexual Orientation Not on file Occupation Industry Job Start Date Job End Date Not on file Not on file Not on file Not on file documented as of this encounter Plan of Treatment Not on file documented as of this encounter Visit Diagnoses Not on filedocumented in this encounter Care Teams Fish Grader Relationship Specialty Start Date End Date Michael Bryant MD [address] [facility] [address] [place] [address] PCP - General 08/06/15 documented as of this encounter
--- OUTSIDE RECORDS SUMMARY | 2025-07-14 18:01 | XMS_ITS | Encounter Summary ---
Author Organization [facility] Address [address] [place] [address] Care Team Providers Care Occupational Rehabilitation Aide Name Role Phone Michael Bryant MD Primary Care Provider [phone] Encounter Details Date Type Department Care Team (Late st Contact Info) Description 10/31/2004 Outpatient Historical Division of Neurology [address] [facility] [address] [address] Davina Cueto MD [address] [facility] [address] [place] [address] Social History Tobacco Use Types Packs/Day Years Used Date Smoking Tobacco: Never Assessed Comments Unknown Sex and Gender Information Value Date Recorded Sex Assigned at Not on file Legal Sex Female 3:03 AM CLINICAL MICROBIOLOGIST Gender Identity Not on file Sexual Orientation Not on file documented as of this encounter Plan of Treatment Not on file documented as of this encounter Visit Diagnoses Not on filedocumented in this encounter Care Teams Occupational Rehabilitation Aide Relationship Specialty Start Date End Date Michael Bryant MD [address] [facility] [address] [place] [address] PCP - General 08/06/15 documented as of this encounter
--- OUTSIDE RECORDS SUMMARY | 2025-07-14 18:01 | XMS_ITS | Encounter Summary ---
Author Organization [facility] Address [address] [place] [address] Care Team Providers Care Landscape Crew Member Name Role Phone Michael Bryant MD Primary Care Provider [phone] Encounter Details Date Type Department Care Team (Late st Contact Info) Description 12/11/2006 Outpatient Historical [facility] [address] [facility] [address] [address] Davina Cueto MD [address] [facility] [address] [place] [address] Social History Tobacco Use Types Packs/Day Years Used Date Smoking Tobacco: Never Assessed Comments Unknown Sex and Gender Information Value Date Recorded Sex Assigned at Not on file Legal Sex Female 3:03 AM MARRIAGE AND FAMILY SOCIAL WORKER Gender Identity Not on file Sexual Orientation Not on file documented as of this encounter Plan of Treatment Not on file documented as of this encounter Visit Diagnoses Not on filedocumented in this encounter Care Teams Landscape Crew Member Relationship Specialty Start Date End Date Michael Bryant MD [address] [facility] [address] [place] [address] PCP - General 08/06/15 documented as of this encounter
--- OUTSIDE RECORDS SUMMARY | 2025-07-14 18:01 | XMS_ITS | Encounter Summary ---
Author Organization [facility] Address [address] [place] [address] Care Team Providers Care Roving Inspector Name Role Phone Michael Bryant MD Primary Care Provider [phone] Encounter Details Date Type Department Care Team (Late st Contact Info) Description 01/23/2007 Outpatient Historical [facility] [address] [facility] [address] [address] Davina Cueto MD [address] [facility] [address] [place] [address] Social History Tobacco Use Types Packs/Day Years Used Date Smoking Tobacco: Never Assessed Comments Unknown Sex and Gender Information Value Date Recorded Sex Assigned at Not on file Legal Sex Female 3:03 AM JALOUSIE INSTALLER Gender Identity Not on file Sexual Orientation Not on file documented as of this encounter Plan of Treatment Not on file documented as of this encounter Visit Diagnoses Not on filedocumented in this encounter Care Teams Roving Inspector Relationship Specialty Start Date End Date Michael Bryant MD [address] [facility] [address] [place] [address] PCP - General 08/06/15 documented as of this encounter
--- OUTSIDE RECORDS SUMMARY | 2025-07-14 18:01 | XMS_ITS | Encounter Summary ---
Author Organization [facility] Address [address] [place] [address] Care Team Providers Care Food And Beverage Director Name Role Phone Michael Bryant MD Primary Care Provider [phone] Encounter Details Date Type Department Care Team (Late st Contact Info) Description 10/23/2005 Outpatient Historical Division of Neurology [address] [facility] [address] [address] Davina Cueto MD [address] [facility] [address] [place] [address] Social History Tobacco Use Types Packs/Day Years Used Date Smoking Tobacco: Never Assessed Comments Unknown Sex and Gender Information Value Date Recorded Sex Assigned at Not on file Legal Sex Female 3:03 AM SYNTHETIC FILAMENT SPINNER Gender Identity Not on file Sexual Orientation Not on file documented as of this encounter Plan of Treatment Not on file documented as of this encounter Visit Diagnoses Not on filedocumented in this encounter Care Teams Food And Beverage Director Relationship Specialty Start Date End Date Michael Bryant MD [address] [facility] [address] [place] [address] PCP - General 08/06/15 documented as of this encounter
--- OUTSIDE RECORDS SUMMARY | 2025-07-14 18:01 | XMS_ITS | Encounter Summary ---
Author Organization [facility] Address [address] [place] [address] Care Team Providers Care Weighing Station Operator Name Role Phone Michael Bryant MD Primary Care Provider [phone] Encounter Details Date Type Department Care Team (Late st Contact Info) Description 08/16/2007 Outpatient Historical [facility] Davina Cueto MD [address] [facility] [address] [place] [address] Multiple Sclerosis (CMS/HCC) Social History Tobacco Use Types Packs/Day Years Used Date Smoking Tobacco: Never Assessed Comments Unknown Sex and Gender Information Value Date Recorded Sex Assigned at Not on file Legal Sex Female 3:03 AM SYSTEMATIC THEOLOGY PROFESSOR Gender Identity Not on file Sexual Orientation Not on file documented as of this encounter Plan of Treatment Not on file documented as of this encounter Visit Diagnoses Diagnosis Multiple sclerosis documented in this encounter Care Teams Weighing Station Operator Relationship Specialty Start Date End Date Michael Bryant MD [address] [facility] [address] [place] [address] PCP - General 08/06/15 documented as of this encounter
--- OUTSIDE RECORDS SUMMARY | 2025-07-14 18:01 | XMS_ITS | Encounter Summary ---
Author Organization [facility] Address [address] [place] [address] Care Team Providers Care Costume Director Name Role Phone Michael Bryant MD Primary Care Provider [phone] Encounter Details Date Type Department Care Team (Late st Contact Info) Description 05/08/2005 Outpatient Historical Division of Neurology [address] [facility] [address] [address] Davina Cueto MD [address] [facility] [address] [place] [address] Social History Tobacco Use Types Packs/Day Years Used Date Smoking Tobacco: Never Assessed Comments Unknown Sex and Gender Information Value Date Recorded Sex Assigned at Not on file Legal Sex Female 3:03 AM PLASTER HELPER Gender Identity Not on file Sexual Orientation Not on file documented as of this encounter Plan of Treatment Not on file documented as of this encounter Visit Diagnoses Not on filedocumented in this encounter Care Teams Costume Director Relationship Specialty Start Date End Date Michael Bryant MD [address] [facility] [address] [place] [address] PCP - General 08/06/15 documented as of this encounter
--- OUTSIDE RECORDS SUMMARY | 2025-07-14 18:01 | XMS_ITS | Encounter Summary ---
Author Organization [facility] Address [address] [place] [address] Care Team Providers Care Talcer Name Role Phone Michael Bryant MD Primary Care Provider [phone] Encounter Details Date Type Department Care Team (Late st Contact Info) Description 11/17/2003 Outpatient Historical Division of Neurology [address] [facility] [address] [address] Davina Cueto MD [address] [facility] [address] [place] [address] Social History Tobacco Use Types Packs/Day Years Used Date Smoking Tobacco: Never Assessed Comments Unknown Sex and Gender Information Value Date Recorded Sex Assigned at Not on file Legal Sex Female 3:03 AM NATURAL SCIENCE MANAGER Gender Identity Not on file Sexual Orientation Not on file documented as of this encounter Plan of Treatment Not on file documented as of this encounter Visit Diagnoses Not on filedocumented in this encounter Care Teams Talcer Relationship Specialty Start Date End Date Michael Bryant MD [address] [facility] [address] [place] [address] PCP - General 08/06/15 documented as of this encounter
--- OUTSIDE RECORDS SUMMARY | 2025-07-14 18:01 | XMS_ITS | Encounter Summary ---
Author Organization [facility] Address [address] [place] [address] Care Team Providers Care Manager Of Employee Relations Name Role Phone Michael Bryant MD Primary Care Provider Encounter Details Date Type Department Care Team (Late st Contact Info) Description 01/10/2007 Outpatient Historical [facility] [address] [facility] [address] [address] Davina Cueto MD [address] [facility] [address] [place] [address] Social History Tobacco Use Types Packs/Day Years Used Date Smoking Tobacco: Never Assessed Comments Unknown Sex and Gender Information Value Date Recorded Sex Assigned at Not on file Legal Sex Female 3:03 AM WAREHOUSE INCENTIVE SELECTOR Gender Identity Not on file Sexual Orientation Not on file documented as of this encounter Plan of Treatment Not on file documented as of this encounter Visit Diagnoses Not on filedocumented in this encounter Care Teams Manager Of Employee Relations Relationship Specialty Start Date End Date Michael Bryant MD [address] [facility] [address] [place] [address] PCP - General 08/06/15 documented as of this encounter
--- OUTSIDE RECORDS SUMMARY | 2025-07-14 18:01 | XMS_ITS | Encounter Summary ---
Author Organization [facility] Address [address] [place] [address] Care Team Providers Care Retail Security Professional Name Role Phone Michael Bryant MD Primary Care Provider [phone] Encounter Details Date Type Department Care Team (Late st Contact Info) Description 12/01/2003 Outpatient Historical [facility] MRI DEPT Davina Cueto MD [address] [facility] [address] [place] [address] MULTIPLE SCLEROSIS (CMS/HCC) (Primary Dx) Social History Tobacco Use Types Packs/Day Years Used Date Smoking Tobacco: Never Assessed Comments Unknown Sex and Gender Information Value Date Recorded Sex Assigned at Not on file Legal Sex Female 3:03 AM FISH HATCHERY LABORER Gender Identity Not on file Sexual Orientation Not on file documented as of this encounter Plan of Treatment Not on file documented as of this encounter Visit Diagnoses Diagnosis Multiple sclerosis- Primary documented in this encounter Care Teams Retail Security Professional Relationship Specialty Start Date End Date Michael Bryant MD [address] [facility] [address] [place] [address] PCP - General 08/06/15 documented as of this encounter
[2025-07-14] MEDS: IBUPROFEN 600 MG TABLET PO (18:02)
--- OUTSIDE RECORDS SUMMARY | 2025-07-14 18:02 | XMS_ITS | Clinical Summary ---
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 Betaseron 5098-8487 skin abscess 2. Copaxone 6533-3586 injection reactions 3. Avonex 2001-04/2015 injection fatigue 4. Gilenya 05/05/15-2022 5. fingolimod: 2022- Assessment & Plan (06/29/2025 10:16 AM EXHIBIT DESIGNER): The patient is presenting for follow up [...] Department Care Team Description 06/29/2025 9:00 AM EXHIBIT DESIGNER [place] [facility] [place] [id number] [address] [address] Kurt Childress MD MS (multiple [...] 05/23/2021,09/13/2020,08/23/2020 Surgical History Surgery Date Site/Laterality Comments IA LIG/TRNSXJ FLP TUBE ABDL/VAG APPR UNI/BI Tubal Ligation - (Added by TW Conv) IA CYSTO W/URETEROSCOPY W/LITHOTRIPSY Cystoscopy With Pyeloscopy With [...] How often do you attend chur or voodoo services? More than 4 times per year 09/28/2020 Do you belong to any clubs o r organizations such as buddhism groups, unions, fraternal or athletic groups, or [...] on file Legal Sex Female 8:26 PM EXHIBIT DESIGNER Gender Identity Female 08/03/2023 12:15 PM EXHIBIT DESIGNER Sexual Orientation Straight 09/21/2021 12 :25 PM EXHIBIT DESIGNER Last Filed Vital Signs Vital Sign Reading Time Taken Comments Blood Pressure 120/65 06/29/2025 9:02 AM EXHIBIT DESIGNER Pulse 68 10/30/2024 7:49 AM CDT Temperature 36.4 C (97.5 F) 06/29/2025 9:02 AM EXHIBIT DESIGNER Respiratory Rate 17 04/09/2024 8:00 PM CDT Oxygen Saturation 99% 10/30/2024 7:49 AM CDT Inhaled Oxygen Concentration - - Weight 69.9 kg (154 lb) 06/29/2025 9:02 AM EXHIBIT DESIGNER Height 170.2 cm (5' 7) 06/29/2025 9:02 AM EXHIBIT DESIGNER Body Mass Index 24.12 06/29/2025 9:02 AM EXHIBIT DESIGNER Plan of Treatment Health Maintenance Due Date [...] 07/11/2025 07/11/2024 Medical Devices Implanted Type Area Bricklayer Sewer Device Identifier Shelf Expiration Date Model / Serial / Lot [employer] [id number] Inlay Northwoods 6fr 24cm Pusher Fluoro Marker Atraumatic Insertion Latex Free - [id number] Implanted:Qty: 1 on 10/19/2020 by Shaun Vega MD at [facility] Stent Left: Ureter [employer] [id number] 01/09/2024 [id number] / / [id number] [employer] Universa 6fr 26cm Radiopaque Positioner Monofilament Tether 2 [id number] - [id number] Implanted:Qty: 1 on 11/24/2022 by Shaun Serna MD at [facility] Left: Ureter [employer] [id number] 10/09/2025 [id number] / / [id number] Explanted Type Area Bricklayer Sewer Device Identifier Shelf Expiration Date Model / Serial / Lot [employer] [id number] Inlay Northwoods 6fr 24cm Pusher Fluoro Marker Atraumatic Insertion Latex Free - Sna - [id number] Implanted:Qty: 1 on 07/03/2018 by Valdez Reyes MD at [facility] Explanted:Qty: 1 on 07/10/2018 Stent Right: Ureter [employer] [id number] 07/06/2022 [id number] / NA / [id number] Description:Stents left on a string, per op note [employer] [id number] Inlay Northwoods 6fr 24cm Pusher Fluoro Marker Atraumatic Insertion Latex Free - Sna - [id number] Implanted:Qty: 1 on 07/03/2018 by Valdez Reyes MD at [facility] Explanted:Qty: 1 on 07/10/2018 Stent Right: Ureter [employer] [id number] 07/06/2022 [id number] / NA / [id number] Description:Stents left on a string, per op note [employer] [id number] Inlay Northwoods 6fr 26cm Pusher Fluoro Marker Atraumatic Insertion Latex Free - [id number] Implanted:Qty: 1 on 06/27/2018 by Patric Simms MD at [facility] Explanted:Qty: 1 on 07/03/2018 by Valdez Reyes MD at [facility] Right: Ureter [employer] [id number] 11/30/2021 [id number] / / [id number] [employer] [id number] Universa 6fr 24cm Radiopaque Graduate Firm Monofilament Tether - [id number] Implanted:Qty: 1 on 09/28/2020 by Shaun Vega MD at [facility] Explanted:Qty: 1 on 10/19/2020 at [facility] Left: Ureter [employer] 02/08/2023 [id number] / / Insurance [facility] CHOICE PLUS [facility] HMO/PPO Address: [address] [address] [place] [address] [facility] FEDERAL FEDERAL FEDERAL Advance Directives For more information, please contact: [phone] * Full Code (Latest Code Status on File) Date Activated Date Inactivated Comments 09/28/2020 3:45 AM 09/30/2020 9:21 PM * Full Code Date Activated Date Inactivated Comments 06/26/2018 10:18 PM 06/28/2018 2:21 PM Care Teams Needle Grinder Relationship Specialty Start Date End Date Lisa Chapin MD [address] [address] PCP - General Internal Medicine 07/11/24
--- OUTSIDE RECORDS SUMMARY | 2025-07-14 18:02 | XMS_ITS | Clinical Summary ---
Author Organization [facility] Administrative Offices Address [address] [place] [address] Care Team Providers Care Wood Grinder Name Role Phone Michael Bryant MD Primary Care Provider [phone] Allergies No known active allergies Medications clorazepate (TRANXENE) 7.5 mg tabletIndicati ons:Multiple sclerosis Take 1 Tablet (7.5 mg) by mouth 2 times daily. 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 Copaxone 3658-9519 skin lesions 3. Avonex 2001-04/2015 4. 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 SHED WORKER Temperature 36.5 C (97.7 F) 12/19/2016 3:06 PM CDT Respiratory Rate - - Oxygen Saturation - - Inhaled Oxygen Concentration - - Weight 59 kg (130 lb) 09/04/2017 2:00 PM BENDING SHED WORKER Height 170.2 cm (5' 7) 09/04/2017 2:00 PM BENDING SHED WORKER Body Mass Index 20.36 09/04/2017 2:00 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
--- OUTSIDE RECORDS SUMMARY | 2025-07-14 18:02 | XMS_ITS | Encounter Summary ---
Author Organization [facility] Address [address] [place] [address] Care Team Providers Care Hazardous Materials Analyst Name Role Phone [place] Bryant MD Primary Care Provider [phone] Encounter Details Date Type Department Care Team (Late st Contact Info) Description 11/08/2006 Outpatient Historical Division of Neurology [address] 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
== END 2025-07-14 18:29 | disposition home or self-care (01) ==
PROVIDERS: Emergency Provider Physician Assistant
DX: M23.91 Unspecified internal derangement of right knee (principal); F17.210 Nicotine dependence, cigarettes, uncomplicated; W01.0XXA Fall on same level from slipping, tripping and stumbling without subsequent striking against object, initial encounter
CPT/HCPCS: 73564; 99283; A9270